=== PATIENT | male | born 1985 | race African-American/Black ===

== ENCOUNTER 2020-05-09 14:02 | Emergency (ER) | payer BC, SELFPAY ==
--- NOTE | 2020-05-09 14:05 | ED.URI ---
HPI - URI/Sore Throat General Chief Complaint: Upper Respiratory Infection Stated Complaint: sore throat/cough Time Seen by Provider: 05/09/20 14:27 Source: patient and RN notes reviewed Mode of arrival: ambulatory Limitations: no limitations History of Present Illness HPI Narrative: 35-year-old male with a history of asthma presents with concern for cough, sore throat, body aches, sinus pressure, postnasal drainage, fatigue. he is concerned about coronavirus. Denies shortness of breath. MD elicited complaint: cough and sore throat Related Data Home Medications Medication Instructions Recorded Confirmed gabapentin 300 mg PO BID 05/09/20 05/09/20 sertraline 50 mg PO BID 05/09/20 05/09/20 trazodone 50 mg PO HS 05/09/20 05/09/20 Allergies Allergy/AdvReac Type Severity Reaction Status Date / Time No Known Allergies Allergy Verified 05/09/20 14:23 Review of Systems Review of Systems: Narrative: CONSTITUTIONAL: Reports malaise, fatigue. Denies chills, sweats, or fever. EYES: Denies visual changes, redness, or discharge. ENT: Reports rhinorrhea, sinus pressure, sore throat. Denies congestion, sinus pain, otalgia. CARDIOVASCULAR: Denies chest pain, palpitations, or edema. RESPIRATORY: Reports cough. Denies dyspnea. GASTROINTESTINAL: Denies abdominal pain, nausea, vomiting, diarrhea SKIN: Denies rash or itching. MUSCULOSKELETAL: Reports myalgia. NEUROLOGIC: Denies headache. All systems reviewed & are unremarkable except as noted in HPI and below PMFSH Comments At time of signature, agree with nursing past medical, surgical, social and family history. There is no relevant family history pertinent to the presenting complaint Exam Narrative: Exam Narrative: GENERAL: Well-appearing, well-nourished, and in no acute distress. HEAD: Normocephalic EYES: PERRLA, conjunctivae clear ENT: Nares clear, turbinates erythematous, clear discharge. Mucous membranes moist. TM pearly baugh with dull light reflex bilaterally; no tragal tenderness. Oropharynx not erythematous without lesions. Tonsils not enlarged and without exudate, no drooling, no hoarseness, no trismus, uvula midline. NECK: Supple. No lymphadenopathy CHEST: Clear to auscultation, breath sounds equal. No wheezing, rhonchi, rales, or stridor. No respiratory distress, speaks in full sentences. HEART: Regular rate and rhythm. No murmur heard. SKIN: Warm, dry, no rash. NEURO: Alert and oriented x3. PSYCH: Normal mood and affect Course Course Emergency Course: Patient is aware of diagnosis, understands and agrees to treatment plan. Anticipatory guidance given. Patient agrees to follow-up as directed and is aware of reasons to seek care at the emergency department. Portions of this record may have been created with voice recognition software Vital Signs Vital signs: Vital Signs Temperature 98.3 F 05/09/20 14:10 Pulse Rate 95 05/09/20 14:10 Respiratory Rate 16 05/09/20 14:10 Blood Pressure 149/67 H 05/09/20 14:10 Pulse Oximetry 99 05/09/20 14:10 Temperature 98.3 F 05/09/20 14:10 Pulse Rate 95 05/09/20 14:10 Respiratory Rate 16 05/09/20 14:10 Blood Pressure 149/67 H 05/09/20 14:10 Pulse Oximetry 99 05/09/20 14:10 Reviewed. MDM - URI/Sore Throat MDM Narrative Medical decision making narrative: Differential diagnosis considered: Coronavirus, strep pharyngitis, allergic rhinitis, upper respiratory tract infection, sinusitis, rhinosinusitis, nasopharyngitis. viral pharyngitis, otitis media, otitis externa, pneumonia, bronchitis, viral cough syndrome, viral syndrome, and influenza. Exam findings show no acute concerns or changes; patient is non-toxic appearing and is in no distress. Patient is appropriate for outpatient treatment and follow-up. Lab Data Attestation: I reviewed the patient's lab results. Labs: Strep Screen Presumptive Negative *(Reference Range: Negative)* Critical Care Time Critical Care Time
[2020-05-09 14:10] VITALS: BP 149/67; PULSE 95; RESP 16; TEMP 36.8; O2SAT 99
== END 2020-05-09 14:42 | disposition home or self-care (01) ==
PROVIDERS: Emergency Provider Nurse Practitioner
DX: J06.9 Acute upper respiratory infection, unspecified (principal); J45.909 Unspecified asthma, uncomplicated; F43.10 Post-traumatic stress disorder, unspecified
CPT/HCPCS: 87081; 87880; 99213; G0463

== ENCOUNTER 2020-08-23 19:47 | Emergency (ER) | payer SELFPAY ==
--- NOTE | ~2020-08-23 | CT_ITS ---
EXAMINATION: CT cervical spine wo con DATE: 08/23/2020 21:22 INDICATION: Neck pain TECHNIQUE: Computed tomography (CT) of the cervical spine was performed without intravenous contrast. Automated exposure control and iterative reconstruction technique were employed. The dose-length pro duct was 514.60 mGy-cm. COMPARISON: None FINDINGS: Mild reversal of the normal cervical lordosis and mild cervical thoracic levocurvature. Vertebral bod y heights are normal. Mild to moderate disc height loss at C6-C7 and mild disc height loss at C2-C3 a nd C5-C6. No fracture. Cervical soft tissues are unremarkable. Visual is fairly and apices of the lisa gs are clear. The following disc levels are specifically discussed: C2-C3: The disc does not extend beyond the endplate margin. There is mild bilateral uncovertebral sonia nt osteoarthritis. There is mild bilateral facet joint osteoarthritis. There is minimal right neural foraminal stenosis. There is no central canal stenosis. C3-C4: The disc does not extend beyond the endplate margin. There is no uncovertebral joint osteoarth ritis. There is mild bilateral facet joint osteoarthritis. There is no neural foraminal stenosis. The re is no central canal stenosis. C4-C5: The disc does not extend beyond the endplate margin. There is mild bilateral uncovertebral sonia nt osteoarthritis. There is mild bilateral facet joint osteoarthritis. There is no neural foraminal s tenosis. There is no central canal stenosis. C5-C6: Disc is mildly bulging. There is minimal bilateral uncovertebral joint osteoarthritis. There i s mild bilateral facet joint osteoarthritis. There is mild left and minimal right neural foraminal st enosis. There is mild central canal stenosis. C6-C7: Disc is bulging. There is moderate left and mild to moderate right uncovertebral joint osteoar thritis. There is mild bilateral facet joint osteoarthritis. There is mild right and mild to moderate left neural foraminal stenosis. There is no central canal stenosis. C7-T1: The disc does not extend beyond the endplate margin. There is no uncovertebral joint osteoarth ritis. There is moderate bilateral facet joint osteoarthritis. There is no neural foraminal stenosis. There is no central canal stenosis. IMPRESSION: 1. Mild cervical spondylosis. Reviewed, dictated and finalized at location H. 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
--- NOTE | ~2020-08-23 | CT_ITS ---
EXAMINATION: CT lumbar spine wo con DATE: 08/23/2020 21:22 INDICATION: Back pain TECHNIQUE: Computed tomography (CT) of the lumbar spine was performed without intravenous contrast. A utomated exposure control and iterative reconstruction technique were employed. The dose-length produ ct was 1004.49 mGy-cm. COMPARISON: Lumbar spine radiographs dated 11/19/[address] dated 03/31/2012 FINDINGS: Mild lumbar levocurvature measured approximately 8 degrees between L3 and S1. 3 mm retrolisthesis L5 on S1. Vertebral body heights are normal. Disc heights are normal. Again seen is a partially exophyti c cyst at the posterior medial upper pole of the left kidney which previously demonstrated simple flu id attenuation and in the current study demonstrates small amount of increased attenuation posteriorl y consistent with a proteinaceous/hemorrhagic cyst. Paravertebral soft tissues are unremarkable. The following disc levels are specifically discussed: T11-T12: The disc does not extend beyond the endplate margin. There is mild bilateral facet joint ost eoarthritis. There is no neural foraminal stenosis. There is no central canal stenosis. T12-L1: The disc does not extend beyond the endplate margin. There is mild bilateral facet joint oste oarthritis. There is no neural foraminal stenosis. There is no central canal stenosis. L1-L2: The disc does not extend beyond the endplate margin. There is mild right and mild to moderate left facet joint osteoarthritis. There is mild left neural foraminal stenosis. There is no central ca nal stenosis. L2-L3: The disc does not extend beyond the endplate margin. There is mild left and mild to moderate r ight facet joint osteoarthritis. There is mild bilateral neural foraminal stenosis. There is no centr al canal stenosis. L3-L4: Disc is mildly bulging. There is mild bilateral facet joint osteoarthritis. There is mild bila teral neural foraminal stenosis. There is mild central canal stenosis. L4-L5: Disc is mildly bulging. There is mild bilateral facet joint osteoarthritis. There is mild bila teral neural foraminal stenosis. There is mild central canal stenosis. L5-S1: Disc is mildly bulging with small left paracentral protrusion. There is mild right and mild to moderate left facet joint osteoarthritis. There is mild bilateral neural foraminal stenosis. There i s minimal central canal stenosis. IMPRESSION: 1. Mild lumbar spondylosis. Reviewed, dictated and finalized at location H. 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 Mild lumbar spondylosis.
[2020-08-23 19:52] VITALS: BP 145/99; PULSE 96; RESP 18; TEMP 35.8; O2SAT 98
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
[2020-08-23] MEDS: KETOROLAC (*BKC) 60 MG/2 ML VIAL IM (20:34)
--- NOTE | 2020-08-23 20:35 | PC.NURSE ---
patient to CT via stretcher.
--- NOTE | 2020-08-23 20:59 | PC.NURSE ---
patient back from radiology. registration stating that patient is does not want to sign consent form or other registration forms until he receives a copy of the record release that we faxed to [facility]. patient given copy. patient stated did you only send this to [facility]? . patient reassured that we only faxed his request to [facility]. patient now agrees to sign other admission forms.
--- NOTE | 2020-08-23 21:55 | PC.NURSE ---
talking on cell phone. CT's resulted. waiting for further orders from provider vs disposition.
--- NOTE | 2020-08-23 22:20 | PC.NURSE ---
report given to Bin GRAY.
[2020-08-23 23:00] VITALS: BP 139/80; PULSE 84; RESP 20; O2SAT 98
== END 2020-08-23 23:09 | disposition home or self-care (01) ==
PROVIDERS: Emergency Provider General Practice
DX: S16.1XXA Strain of muscle, fascia and tendon at neck level, initial encounter (principal); S39.92XA Unspecified injury of lower back, initial encounter; M51.26 Other intervertebral disc displacement, lumbar region; F17.200 Nicotine dependence, unspecified, uncomplicated; M47.812 Spondylosis without myelopathy or radiculopathy, cervical region; M47.816 Spondylosis without myelopathy or radiculopathy, lumbar region; V49.40XA Driver injured in collision with unspecified motor vehicles in traffic accident, initial encounter
CPT/HCPCS: 72125; 72131; 96372; 99284; J1885

== ENCOUNTER 2021-01-03 14:00 | Outpatient (RCR) | payer BC, SELFPAY ==
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
--- NOTE | 2020-12-15 16:07 | PCPTNOTE ---
Patient called & cancelled scheduled appointment this date. No reason given on message.
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
== END 2021-01-04 10:16 | disposition home or self-care (01) ==
LOC: ANHPT 14:00
PROVIDERS: Visit Provider Family Medicine
DX: G54.2 Cervical root disorders, not elsewhere classified (principal); M99.53 Intervertebral disc stenosis of neural canal of lumbar region
CPT/HCPCS: 97012; 97014; 97110; 97140; 97162; G0283

== ENCOUNTER 2021-03-21 08:30 | Outpatient (RCR) | payer BC, SELFPAY ==
--- NOTE | 2021-01-26 16:49 | PTOPEVAL ---
PHYSICAL THERAPY RE-EVALUATION Thank you for referring Tex Alvarado to [facility].? The patient was re-evaluated for the dx of left shoulder and arm pain/tingling. The patient is scheduled to be seen for therapy? 2 x/week for 4 weeks. Please review, sign, date and return this plan of care DOLLY. I agree with and certify that the following plan of care is medically necessary. Referring Physician Date Referring Provider: Dr. Tex Chase *PT Outpatient Evaluation Start: 01/26/21 14:05 Freq: Status: Active Protocol: Document 01/26/21 14:06 MLV (Rec: 01/26/21 14:50 MLV [id number]) Therapy Assessment Status Assessment Status Assessment Status Re-evaluation Evaluation Information Problem Diagnosis neck and shoulder blade pain Additional Evaluation Detail Pt has had an MRI due to continued pain at left shoulder blade and was given gabapentin. The medication is helping some. The patient reports continued pain at medial upper arm to the 4/5th fingers and is at lower trap at trigger point. The patient had follow up with MD and re- ordered more therapy to attempt better relief. Diagnostic Tests MRI For This Problem Yes: no details of results given to patient Previous Treatments Previous Treatments For This Problem recent PT here for this, relief was limited Pain Assessment Timing of Pain Assessment Timing of Pain Assessment Assessment Pain Scale Pain Scale Used Numeric (1 - 10) Self Report Pain Assessment Left Upper Medial Arm(s) Reported Pain Level 5 Pain Description Pulling,Tingling Greatest Pain Intensity 6 Pain Aggravating Factors Walking Pain Behaviors None Left Scapula Reported Pain Level 5 Greatest Pain Intensity 7 Other Pain Aggravating Factors driving, pressure from a chair Pain Behaviors Irritable Pain Score Pain Score 5,5: Self Report Interventions Used Interventions Used By Clinicians Education,Electrical Stimulation,Heat Pain Relief Interventions Used By Inactivity/Rest,Position Patient Change Cervical and Lumbar ROM Cervical ROM Reason Not Measured WNL/Left,WNL/Right Upper Extremity Range of Motion General Upper Extremity Range of Motion Reason Not Measured WNL/Left,WNL/Right Upper Extremity Muscle Strength Testing General Upper Extremity Strength Reason Not
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
--- NOTE | 2021-02-16 15:18 | PCPTNOTE ---
Patient did not show up for scheduled appointment this date. Patient was called and pt reports he was on his way in-believed his appt. was at 2:30pm. Appt was cancelled due to lack of other times available this date.
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
--- NOTE | 2021-03-15 09:44 | PCPTNOTE ---
Patient did not show up for scheduled appointment this date; called patient and left voicemail stating if he had any further questions to call.
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
== END 2021-04-11 10:20 | disposition home or self-care (01) ==
LOC: ANHPT 08:30
PROVIDERS: Referring Provider Orthopaedic Surgery
DX: M54.2 Cervicalgia (principal)
CPT/HCPCS: 97014; 97110; 97140; 97162; G0283

== ENCOUNTER 2021-08-01 10:43 | Outpatient (CLI) | payer OTHER, SELFPAY ==
--- NOTE | ~2021-08-01 | MR_ITS ---
EXAMINATION: MR knee LT wo con DATE: 08/01/2021 12:09 INDICATION: Left knee pain TECHNIQUE: Magnetic resonance imaging (MRI) of the left knee was performed without intravenous contra st. Sequences included coronal PD-weighted FSE, coronal PD-weighted FS FSE, sagittal T2-weighted FSE , sagittal PD-weighted FS FSE and axial PD weighted fat saturated FSE. COMPARISON: Radiographs dated 07/16/2021 FINDINGS: Medial compartment: Longitudinal horizontal tear extending to the inferior articular surface at the body and anterior hor n of the medial meniscus. There is a large parameniscal cyst extending posteriorly from the tear latonya g the periphery of the posterior horn. The cyst extends 4 cm in length extending into the posterior a spect of the intercondylar notch where it measures approximately 8 x 8 mm in maximal orthogonal dimen sions. Additional tiny parameniscal cyst along the anterior horn. Articular cartilage is normal. Lateral compartment: Lateral meniscus is normal. Articular cartilage is normal. Patellofemoral compartment: Articular cartilage is normal. Ligaments and tendons: Anterior and posterior cruciate ligaments are normal. The medial collateral ligament and fibular pranav ateral ligament complex are normal. The extensor mechanism is normal. The visualized medial and later al hamstring tendons as well as the iliotibial band are normal. Fluid: Physiologic amount of fluid in the joint space. No loose osteochondral bodies identified. Osseous/other: Normal marrow signal. No fracture or pathologic marrow replacing process. IMPRESSION: 1. Medial meniscal tear with prominent para meniscal cysts extending along the periphery of the anter ior and posterior horns. Reviewed, dictated and finalized at location A. IMPRESSION: 1. Medial meniscal tear with prominent para meniscal cysts extending along the periphery of the anterior and posterior horns.
== END 2021-08-01 10:44 | disposition home or self-care (01) ==
LOC: ANHIMG 10:44
PROVIDERS: PCP Family Medicine; Visit Provider Orthopaedic Surgery
DX: S83.242A Other tear of medial meniscus, current injury, left knee, initial encounter (principal)
CPT/HCPCS: 73721

== ENCOUNTER → 2021-09-25 02:26 | Outpatient (CLI) | payer OTHER, SELFPAY ==
[2021-09-26 03:58] LABS: SARS-CoV-2 RNA PCR Positive
== END ==
PROVIDERS: PCP Family Medicine; Visit Provider Family Medicine
DX: U07.1 COVID-19 (principal)
CPT/HCPCS: C9803; U0003; U0005

== ENCOUNTER 2021-11-27 09:59 | Outpatient (CLI) | payer OTHER, SELFPAY ==
--- NOTE | ~2021-11-27 | MR_ITS ---
EXAMINATION: MR knee LT wo con DATE: 11/27/2021 10:50 INDICATION: Left knee pain. TECHNIQUE: Magnetic resonance imaging (MRI) of the left knee was performed without intravenous contra st. Sequences included axial PD-weighted FS FSE, coronal PD-weighted FSE and PD-weighted FS FSE, sagi ttal PD-weighted FSE, and sagittal T2-weighted FS FSE. COMPARISON: Left knee MRI 08/01/2021, radiographs 11/12/2021 FINDINGS: Medial compartment: Medial meniscus is normal. Medial compartment cartilage is normal. Lateral compartment: There is an undersurface horizontal tear of anterior horn of lateral meniscus. There are cysts adjace nt to the lateral meniscus anteriorly and posteriorly. The largest cyst is anterior and multiloculate d and measures 2.3 x 1.2 x 1.2 cm. There is cartilage surface irregularity of tibial condyle. There i s shallow partial-thickness cartilage loss of femoral condyle, worst at the central articular surface . Patellofemoral compartment: Patellar cartilage is normal. Trochlear cartilage is normal. Ligaments and tendons: The anterior and posterior cruciate ligaments are normal. There is a partial tear of medial collatera l ligament with surrounding edema. Lateral collateral ligament complex is normal. There is edema-like marrow signal intensity in posterolateral aspect of lateral femoral condyle, consistent with stress reaction. Fluid: There is no knee joint effusion. There is trace fluid in a Hayward's cyst. There is mild prepatellar an d superficial infrapatellar bursitis. IMPRESSION: 1. Grade 2 sprain of medial collateral ligament, new from 08/01/2021. 2. Edema-like marrow signal intensity in posterolateral aspect of lateral femoral condyle, consistent with stress reaction. 3. Mild chondrosis of lateral compartment. 4. Tear of lateral meniscus with parameniscal cysts. Reviewed, dictated and finalized at location A. [employer] IMPRESSION: 1. Grade 2 sprain of medial collateral ligament, new from 08/01/2021. 2. Edema-like marrow signal intensity in posterolateral aspect of lateral femor al condyle, consistent with stress reaction. 3. Mild chondrosis of lateral compartment. 4. Tear of lateral meniscus with parameniscal cysts.
== END 2021-11-27 10:00 | disposition home or self-care (01) ==
LOC: ANHIMG 10:06
PROVIDERS: PCP Family Medicine; Visit Provider Orthopaedic Surgery
DX: S83.282A Other tear of lateral meniscus, current injury, left knee, initial encounter (principal); X58.XXXA Exposure to other specified factors, initial encounter
CPT/HCPCS: 73721

== ENCOUNTER 2021-12-14 00:36 | Day surgery (SDC) | payer OTHER, SELFPAY ==
[2021-12-05 08:17] VITALS: BMI 30.4
--- NOTE | 2021-12-05 08:20 | PC.NURSE ---
Report to the Outpatient Waiting Room, entrance under the green pavilion located off [facility], at time _0600__ on date _[id number]_. OR Time: __729_. - You and your visitor will be asked a series of questions to screen for COVID 19 for your protection. - A mask is required within the hospital. Preoperative COVID Testing Requirements: No COVID Test needed if: (proof is required; if not received patient will have Rapid Test prior to entry) - Patient has received COVID Vaccine at least 14 days prior to procedure date or - Patient has positive COVID test result within last 90 days of surgery date. COVID Test needed if above criteria is not met If not COVID vaccinated a COVID test must be conducted within 72 hours of surgery and patient is asked to isolate self from time of testing until procedure. You will go to the [facility] for your COVID testing. The [employer] [facility] site is located at the corner of [address] from [facility]. You will only be called if COVID results are positive and your surgeon may reschedule your elective surgery date. Patients may have clear liquids (water, carbonated beverages, clear teas, apple juice) until 3 hours prior to surgery with a maximum of 20 ounces. - No food from midnight until time of surgery - Infants may have breast milk until 4 hours before surgery, formula 6 hours prior to surgery. - Children will be allowed to drink immediately following surgery. If applicable, please bring a bottle or sippy cup to assist with drinking. Juice, water, soda, and popsicles are readily available. For infants on formula, please bring formula the day of surgery. Pacifiers are allowed. Take the following medications with a SIP of water the morning of surgery: Medications to discontinue per physician Date to take last dose Please no make-up, nail gabonese, hairspray, perfume, deodorant, or body powder the day of surgery. No jewelry (including any body piercings) or valuables the day of surgery, leave them at home. Please take a shower or bath the night before, or the morning of, surgery with an antibacterial soap. Wear comfortable, loose fitting clothing. Children are encouraged to wear pajamas. - Jewelry must be removed prior to entering the operating room. Rings and piercings that are not removed may be cut off. - The hospital will not accept responsibility for valuables. - Please leave all valuables, including medications, at home the day of surgery. If you are going home after surgery, a licensed motorcycle delivery driver must drive you home. - NO public transportation without another adult. - We recommend that an adult stay with you for 24 hours following discharge. - We also recommend that you do not drive, make important decision, drink alcoholic beverages, or take any drugs that were not prescribed by your health care provider for at least 24 hours after your discharge time. For Pediatric surgeries, we recommend two adults accompany the child home (only one inside the building at this time). One visitor will be allowed to accompany the patient into the hospital. Patients visitor will be instructed to remain with patient at all times or leave the building. We will allow the visitor to come back to the postoperative area when patient is ready. Follow any additional instructions given to you from your surgeon. Telephone instructions given to ___Patient and asked if any additional questions and then verbalized understanding. Patient advised to call surgeon office or pre surgery nurse liaison [phone] if any additional questions.
--- NOTE | 2021-12-13 13:39 | P.PNAN_ITS ---
Anes - Initial Pre Proc Eval Procedure: Operation Date: 12/14/21 11:00 Proposed Procedures p Left Knee Arthroscopy with Meniscectomy, Excision Parameniscal Cyst - Archie Ruth MD Date/Time: 12/13/21 13:39 Surgeon: Archie Ruth MD Pre Op Diagnosis: Lt Knee Medial Meniscus Tear Patient Data Age: 36 Gender: M Height: 1.85 m Weight: 104.5 kg Allergies Allergy/AdvReac Type Severity Reaction Status Date / Time No Known Allergies Allergy Verified 12/14/21 09:25 Home Medications Medication Instructions Recorded Confirmed Type chlorhexidine gluconate 4 % 1 applic TOPICAL ONCE #237 ml 12/07/21 Rx topical liquid Patient hx anesthesia problems: none Family hx anesthesia problems: none Results Review: All pre-operative results and documents have been reviewed as part of the pre-operative evaluation. [facility] Past Medical History Medical History (Updated 12/07/21 @ 12:16 by MARTIN Fajardo) Anxiety Arthritis Asthma Depression with anxiety Environmental allergies Insomnia Lateral meniscus tear PTSD (post-traumatic stress disorder) Surgical History Surgical History No pertinent past surgical history Social History Social History Tobacco type: cigars Alcohol intake: unknown Substance use: never Substance use type: does not use Living arrangements: with family Gender identity (if verbalized by the patient): Male Spiritual care concerns: No Anes - Eval Final PreProcedure Day of Procedure 12/13/21 13:39 Patient weight: obese Heart: regular rate and rhythm Lungs: clear to auscultation Airway: Mallampati scale class II Neurological: alert and oriented Last oral intake: >/= 8 hours ASA classification: II Emergent: no Anesthetic plan: proceed Anesthesia type and monitoring: general LMA and standard monitoring Results Review: All pre-operative results and documents have been reviewed as part of the pre-operative evaluation. Informed Consent: The patient's anesthetic plan and its attendant risks and benefits were discussed with the patient/family/POA. Questions were solicited and answers provided to the satisfaction of the patient/family/POA.
[2021-12-14] VITALS (9 sets, daily range): BP systolic 123–134; BP diastolic 76–95; PULSE 70–82; RESP 12–16; TEMP 36.6–37.1; O2SAT 96–98
--- NOTE | 2021-12-14 07:27 | WPDHPUPDATE1 ---
History and Physical Update Update Date/Time: 12/14/21 07:27 History and Physical has been reviewed, including an updated exam of the patient. There are NO changes in the patient's condition. Risks, benefits, and alternatives have been discussed and questions answered. Patient agrees to proceed with procedure.
[2021-12-14] MEDS: CELECOXIB 200 MG CAPSULE PO (09:35)
[2021-12-14] MEDS: ACETAMINOPHEN 500 MG TABLET 1000 MG PO (09:35)
[2021-12-14] MEDS: LACTATED RINGERS 1,000 ML 30 ML IV CONT ×2 (10:20→12:34)
[2021-12-14] MEDS: ceFAZolin 2 GM/D5W 50 ML 2 GM/50 ML BAG IVPB (10:43)
[2021-12-14] MEDS: BUPIVACAINE HCL 0.5% PF 30 ML VIAL INFILTRATE (11:08)
--- NOTE | 2021-12-14 12:48 | W.PM.PROC2 ---
Procedure Note - Detailed Date of Procedure 12/14/21 Pre-op Diagnosis Lt Knee Medial Meniscus Tear Post-op Diagnosis Same Procedure Performed LEFT KNEE SCOPE Surgeon Archie Ruth MD Anesthesia General Description of Procedure PATIENT WAS TAKEN TO THE OR. LEFT LEG WAS PREPPED AND DRAPED STERILE. TROCARS WERE PLACED IN THE USUAL FASHION. CAMERA WAS INTRODUCED. THERE WAS no CHONDROMALACIA TO THE PATELLA OR PATELLO FEMORAL JOINT. THERE WAS A LOT OF SYNOVITIS IN ALL COMPARTMENTS. THE MEDIAL COMPARTMENT SHOWED NO CHONDROMALACIA TO THE MEDIAL FEMORAL CONDYLE OR PLATEAU. THERE WAS NO MEDIAL MENISCUS TEAR. THE ACL WAS INTACT. THE LATERAL MENISCUS WAS TORN AT THE MID SUBSTANCE AND THE ANTERIOR HORN. THERE WAS A FLAP WITHIN THE INTERCONDYLAR NOTCH. THE TEARS WERE RESECTED. THE LATERAL COMPARTMENT HAD GRADE 2 CHONDROMALACIA AT THE LATERAL FEMORAL CONDYLE ON THE MAIN WEIGHT BEARING SURFACE. CHONDROPLASTY WAS PREFORMED. A SYNOVECTOMY WAS PREFORMED WELL. CYSTIC MATERIAL APPEARED TO BE AT THE ANTERIOR SYNOVIUM REGION AND WAS RESECTED WITH A SYNOVECTOMY. SYNOVECTOMY WAS PREFORMED IN THE SUPERIOR MEDIAL COMPARTMENT. THE WOUNDS WERE APPROXIMATED WITH 4.0 NYLON. STERILE DRESSING WAS APPLIED. PATIENT WAS EXTUBATED. Estimated Blood Loss 5 Complications No immediate complications Condition Stable Disposition PACU
[2021-12-14] MEDS: fentaNYL CITRATE INJ (*CRX) 100 MCG/2 ML VIAL 25 MCG IV PUSH ×2 (13:03→13:13)
[2021-12-14] MEDS: oxyCODONE HCL (*CRX) 5 MG TAB IR PO (14:10)
== END 2021-12-14 15:00 | disposition home or self-care (01) ==
PROVIDERS: PCP Family Medicine; Visit Provider Orthopaedic Surgery
PROC: (CPT 29870; principal; 2021-12-14 11:00)
DX: S83.272A Complex tear of lateral meniscus, current injury, left knee, initial encounter (principal); S83.412A Sprain of medial collateral ligament of left knee, initial encounter; X50.0XXA Overexertion from strenuous movement or load, initial encounter; E66.9 Obesity, unspecified; Z68.30 Body mass index [BMI] 30.0-30.9, adult
CPT/HCPCS: 29881; A9270; J0690; J1100; J2250; J2405; J2704; J3010; J7120

== ENCOUNTER 2022-01-17 08:15 | Outpatient (RCR) | payer OTHER, SELFPAY ==
--- NOTE | 2021-11-28 12:27 | PTOPEVAL ---
PHYSICAL THERAPY EVALUATION AND PLAN OF CARE Thank you for referring Tex Alvarado to [facility].? The patient is scheduled to be seen for therapy? 2x/week for 2-4 weeks. There may be a pause is care as he has knee surgery scheduled for 12/14/21. Will communicate any changes in plan of care. Please review, sign, date and return this plan of care DOLLY. I agree with and certify that the following plan of care is medically necessary. Referring Physician Date Attending Provider: Pradip Tillman MD Evaluation Outpatient Past Medical History Neurological History Hx Neurological Disorders No Significant History Cardiovascular History Hx Cardiac Disorders No Significant History Respiratory History Hx Asthma Yes Gastrointestinal History Hx Gastrointestinal Disorders No Significant History Genitourinary History Hx Genitourinary Disorders No Significant History Musculoskeletal History Hx Arthritis Yes: NECK Hematological History Hx Hematological Disorders No Significant History Endocrine History Hx Endocrine Disorders No Significant History HEENT History Hx Other HEENT Disorders Yes: EYE INJURY WITH PAIN Integumentary History Hx Skin Disorders No Significant History Reproductive History Hx Reproductive Disorders No Significant History Psychosocial History Hx Post Traumatic Stress Disorder Yes Pain History History of Any Previous or Ongoing No Significant History Instance of Pain Anesthesia History Hx Anesthesia Reactions No Significant History Diagnosis neck pain, back pain Onset 11/09/21 Subjective Information patient was on the phone when Query Text:As Reported By Patient/ we came to the treatment room. Family I told him that we could start when he was done with his phone call and he said that I could go ahead and I replied that no we would start the evaluation when he was done with his phone call and I could step out of the room if he needed. He immediately stood up and walked to go talk with the manager ethics (Alexus Bower). He retuned and sat in the chair. I confirmed with him that we would be working with his neck and his back (the order has referral for knee pain, but he stated that he is having surgery on to his knee and we would not be worki
--- NOTE | 2021-12-10 09:43 | PCPTNOTE ---
Addendum entered by Avril Irwin, PT, DPT 12/10/21 10:55: called patient and he stated that he ended up having a double appointment and asked to reschedule today's appointment. We rescheduled for a 30minute for 12/11 at 8:30AM. Original Note: Patient did not show up for scheduled appointment this date.
--- NOTE | 2021-12-26 09:57 | PCPTNOTE ---
Patient called & cancelled scheduled appointment this date due to not feeling well and knee is hurting more.
--- NOTE | 2022-01-01 11:52 | PTOPEVAL ---
PHYSICAL THERAPY PROGRESS REPORT and PLAN OF CARE UPDATE Thank you for referring Tex Alvarado to [facility].? The patient is scheduled to be seen for therapy? 2x/week for 4 weeks. Please review, sign, date and return this plan of care DOLLY. I agree with and certify that the following plan of care is medically necessary. Referring Physician Date Attending Provider: Pradip Tillman MD Progress Diagnosis neck pain, back pain Onset 11/09/21 Subjective Information is here today for evaluation Query Text:As Reported By Patient/ of the left knee following Family menisectomy arthroscopy and for re-assessmnet of neck and back pain. States that his neck and back are making good progress with some tightness in the neck and pain in the right middle back region. left knee: states that he feels like he strained the back of the knee and the muscles in the back and states there is a lot of tightness in the knee. He speaks frequently about the swelling and fluid in the knee and seems to be quite concerned that there continues to be swelling. He is no longer using crutches. Wants to be able to be active by February. Self Report Pain Assessment Left Knee(s) Reported Pain Level 8 Pain Description Tightness Pain Frequency Acute,Continuous Neck Reported Pain Level 2 Pain Description Aching,Tightness Bilateral Back Reported Pain Level 2 Pain Description Sharp Radicular Pain Location stiffness Pain Frequency Chronic,Continuous Pain Score Pain Score 2,2,8: Self Report Interventions Used Interventions Used By Clinicians Education,Exercise Cervical and Lumbar ROM Cervical ROM Cervical Flexion (0-60) 50 Query Text:Active in Degrees Cervical Extension (0-70) 50 Query Text:Active in Degrees Cervical Rotation Right (0-90) 70 Query Text:Active in Degrees Cervical Rotation Left (0-90) 80 Query Text:Active in Degrees Cervical ROM Comments . Lumbar ROM Lumbar Flexion Active Mid [place] Query Text:Hands to: Lumbar Extension (0-40) 10 Query Text:Active in Degrees
--- NOTE | 2022-01-03 08:57 | PCPTNOTE ---
Patient called & cancelled scheduled appointment this date due to work.
--- NOTE | 2022-01-14 09:08 | PCPTNOTE ---
Patient did not show up for scheduled appointment this date; called patient for reminder of appointment on @ 8:15. Patient stated he wanted to reschedule this missed appointment transferred called to brakes inspector to schedule.
--- NOTE | 2022-01-22 08:45 | PCPTNOTE ---
Patient called & cancelled scheduled appointment this date due work conflict.
--- NOTE | 2022-02-06 08:48 | PCPTNOTE ---
Patient did not show up for scheduled appointment this date.
--- NOTE | 2022-02-27 07:48 | PCPTNOTE ---
Patient called & cancelled scheduled appointment this date due to his knee swelling.
--- NOTE | 2022-02-27 12:17 | PCPTNOTE ---
Called and spoke with patient regarding his cancelled visit. He states that at his last MD appt, 02/22/22, he was told to decreased activity. He has been trying to decrease activity over the weekend. He called to cancel his appointment this morning secondary to his knee swelling and did not want to come to therapy in case is aggravated the knee. He was seeking advice as to what could be causing the swelling. Without seeing him I am not able to provide this type of advice; however, this is the third appointment he has cancelled due to his concern; therefore, I advised him to speak with the physician again. We plan to discharge from PT until the swelling in the knee can be better controlled.
--- NOTE | 2022-02-27 12:20 | PCPTNOTE ---
PHYSICAL THERAPY DISCHARGE NOTE Patient:Tex Alvarado Date of :1985 Tex was participating in physical therapy initially for neck and thoracic spine pain and then in December he had menisectomy performed on left knee. Since that time we were addressing rehab from surgery. He continues to have persistent pain and swelling in the left knee. Stairs and squats increase pain. Rest and ice alleviate pain. Patient has not returned for any further treatments since 01/17/2022 and has cancelled several due to swelling in the knee. He will be discharged at this time until swelling in knee can be better controlled. Thank you for referring this patient to [facility]. Please review, sign, date and return this discharge summary DOLLY. I have been updated about the patient's current status and I agree with discharge from the above service at this time. Referring Physician Date
== END 2022-02-26 23:59 | disposition home or self-care (01) ==
LOC: ANHPT 08:15
PROVIDERS: PCP Family Medicine; Referring Provider Family Medicine; Visit Provider Family Medicine
DX: M25.562 Pain in left knee (principal); M54.2 Cervicalgia; M54.9 Dorsalgia, unspecified; G89.29 Other chronic pain
CPT/HCPCS: 97014; 97110; 97112; 97116; 97140; 97162; G0283

== ENCOUNTER 2022-05-21 07:27 | Outpatient (CLI) | payer OTHER, SELFPAY ==
--- NOTE | ~2022-05-21 | MR_ITS ---
EXAMINATION: MR knee LT wo con DATE: 05/21/2022 08:59 INDICATION: Pelvic recurrent left knee pain post arthroscopy. TECHNIQUE: Magnetic resonance imaging (MRI) of the left knee was performed without intravenous contra st. Sequences included coronal PD-weighted FSE, coronal PD-weighted FS FSE, sagittal T2-weighted FSE , sagittal PD-weighted FS FSE and axial PD weighted fat saturated FSE. COMPARISON: 11/27/2021 FINDINGS: Medial compartment: There is a new small longitudinal vertical tear extending to the inferior articular surface and the p eripheral third of the posterior horn of the medial meniscus. Articular cartilage is normal. Lateral compartment: Decrease in size of the anterior horn of the lateral meniscus consistent with interval partial menisc ectomy. There is a ragged margin along a radial tear plane at the posterior horn of the lateral menis cus which previously appeared normal, likely beyond the anticipated posterior margin of the prior par tial meniscectomy and which along with the irregular margins and would favor a recurrent meniscal tea r. The prior prior meniscal cysts are no longer visualized and have likely also been debrided. Parti al-thickness cartilage loss with new deep fissuring along the anterior weightbearing lateral femoral condyle. Shallow chondral surface regularity along the lateral tibial plateau. Patellofemoral compartment: Articular cartilage is normal. Ligaments and tendons: Anterior and posterior cruciate ligaments are normal. Again noted is a partial tear involving the ant erior portion of the proximal medial collateral ligament with resolution of the prior surrounding nora ctive edema. No evident progression of extent or severity of the tear. The fibular collateral ligamen t complex is normal. Tiny enthesophyte at the patellar insertion of the distal patellar tendon. The e xtensor mechanism is otherwise normal. The visualized medial and lateral hamstring tendons as well as the iliotibial band are normal. Fluid: Small left knee joint effusion with mild synovitis at the suprapatellar pouch. No loose osteochondral bodies identified. Small Hayward's cyst. Osseous/other: Prior marrow edema likely related to bone contusion at the posterolateral aspect of the weightbearing lateral femoral condyle has resolved. Marrow signal is now normal with no fracture or pathologic mar row replacing process. IMPRESSION: 1. Postoperative change of prior partial meniscectomy involving the anterior horn and likely body of the lateral meniscus. There is a new radial oriented defect with irregular margins at the previously normal-appearing posterior horn likely beyond the expected margins of the prior meniscectomy and woul d favor a recurrent meniscal tear. 2. New very small vertically oriented tear at the posterior horn of the medial meniscus. 3. No evident progression of a chronic partial tear along the anterior aspect of the proximal medial collateral ligament. 4. 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 Reviewed, dictated and finalized at location A. IMPRESSION: 1. Postoperative change of prior partial meniscectomy involving the anterior ho rn and likely body of the lateral meniscus. There is a new radial oriented defe ct with irregular margins at the previously normal-appearing posterior horn lik sofia beyond the expected margins of the prior meniscectomy and would favor a rec urrent meniscal tear. 2. New very small vertically oriented tear at the posterior horn of the medial meniscus. 3. No evident progression of a chronic partial tear along the anterior aspect o f the proximal medial collateral ligament. 4. Interval progression of moderate grade chondromalacia in the lateral compart me
== END 2022-05-21 07:28 | disposition home or self-care (01) ==
LOC: ANHIMG 07:32
PROVIDERS: PCP Family Medicine; Visit Provider Orthopaedic Surgery
DX: M25.562 Pain in left knee (principal); Z98.890 Other specified postprocedural states
CPT/HCPCS: 73721

== ENCOUNTER 2022-07-15 14:55 | Outpatient (RCR) | payer OTHER, SELFPAY ==
[2022-07-15 15:30] VITALS: BP_SYST 84
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
--- NOTE | 2022-07-19 11:37 | PCPTNOTE ---
Patient did not show up for scheduled appointment this date. Physical therapist called patient at 1130. Patient reports he forgot as he has been having memory issues and asked to be connected to the front counter clerk to reschedule. Transferred to the front counter clerk to talk to Alexus.
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
== END 2022-10-03 13:24 | disposition home or self-care (01) ==
LOC: ANHPT 14:55
PROVIDERS: PCP Family Medicine; Visit Provider Nurse Practitioner Family
DX: M25.512 Pain in left shoulder (principal); M54.50 Low back pain, unspecified; M54.6 Pain in thoracic spine
CPT/HCPCS: 97161; 99199

== ENCOUNTER 2023-02-16 13:49 | Emergency (ER) | payer OTHER, SELFPAY ==
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
[2023-02-16 14:00] VITALS: BP 148/93; PULSE 109; RESP 20; TEMP 36.7; O2SAT 98
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
[2023-02-16] MEDS: SODIUM CHLORIDE 0.9% IV 1,000 ML 999 ML IV CONT (14:59)
[2023-02-16] MEDS: TETANUS,DIPHTHERIA,AC PERTUSSIS ADULT (0.5 ML) BOOSTRIX IM (15:01)
[2023-02-16] MEDS: KETOROLAC 15 MG/ML VIAL (*BKC) IV PUSH (15:02)
[2023-02-16 15:11] LABS: Basophils Percent Auto 0.4 % (0.2-1.2); Eosinophils Absolute Auto 0.2 K/mm3 (0-0.3); Eosinophils Percent Auto 3.5 % (0-4.4); Hematocrit 44.8 % (42.0-52.0); Hemoglobin 15.3 g/dL (14.0-18.0); Immature Granulocyte Absolute 0.04 K/mm3 (0.00-0.031); Immature Granulocyte Percent A 0.8 % (0-0.5); Lymphocytes Percent Auto 21.2 % (18.3-44.2); Mean Corpuscular HGB Conc 34.2 g/dl (32-36); Mean Corpuscular Volume 90.7 fl (80-100); Mean Platelet Volume 9.3 fl (7.4-10.4); Monocytes Absolute Auto 0.5 K/mm3 (0.1-0.6); Neutrophils Absolute Auto 3.3 K/mm3 (1.3-6.7); Neutrophils Percent Auto 64.1 % (45.5-73.1); Platelet Count Result 243 k/mm3 (150-375); Red Blood Count 4.94 M/mm3 (4.6-6.20); Red Cell Distribution Width 12.1 % (11.5-14.5); White Blood Count 5.2 K/mm3 (4.5-10.0)
[2023-02-16 15:21] LABS: Alanine Aminotransferase 39 U/L (6-50); Albumin Level 4.5 g/dL (3.5-5.1); Alkaline Phosphatase 45 U/L (38-126); Anion Gap 7 mmol/L (8-16); Aspartate Amino Transferase 57 U/L (17-59); Bilirubin,Total 0.8 mg/dL (0.2-1.3); Blood Urea Nitrogen 15 mg/dL (9-20); Calcium 8.9 mg/dL (8.4-10.2); Carbon Dioxide 27 mmol/L (22-30); Chloride 106 mmol/L (98-107); Estimated CRCL calculation 123 ml/min; Estimated Glomerular Filt Rate > 60; Glucose 95 mg/dL (65-110); Lipase 121 U/L (23-300); Potassium 3.8 mmol/L (3.4-5.0); Sodium 140 mmol/L (137-145)
--- NOTE | 2023-02-16 16:14 | PC.NURSE ---
Patient declined to give Urine Sample at this time. patient reports that he does not need any urine testing.
[2023-02-16 17:15] VITALS: BP 143/84; PULSE 70; RESP 18; O2SAT 100
== END 2023-02-16 18:47 | disposition short-term general hospital (02) ==
PROVIDERS: Emergency Provider General Practice
DX: S09.90XA Unspecified injury of head, initial encounter (principal); S36.892A Contusion of other intra-abdominal organs, initial encounter; T22.211A Burn of second degree of right forearm, initial encounter; T31.0 Burns involving less than 10% of body surface; S89.92XA Unspecified injury of left lower leg, initial encounter; S89.91XA Unspecified injury of right lower leg, initial encounter; S19.9XXA Unspecified injury of neck, initial encounter; S69.92XA Unspecified injury of left wrist, hand and finger(s), initial encounter; Z23 Encounter for immunization; M19.90 Unspecified osteoarthritis, unspecified site; J45.909 Unspecified asthma, uncomplicated; Z86.73 Personal history of transient ischemic attack (TIA), and cerebral infarction without residual deficits; W52.XXXA Crushed, pushed or stepped on by crowd or human stampede, initial encounter
CPT/HCPCS: 36415; 70450; 71260; 72125; 73130; 73564; 74177; 80053; 83690; 85025; 90471; 90715; 96361; 96374; 99284; 99285; J1885; J7030; Q9967

== ENCOUNTER 2023-06-23 17:20 | Emergency (ER) | payer OTHER, SELFPAY ==
--- NOTE | ~2023-06-23 | XR_ITS ---
EXAMINATION: XR chest 2V Exam Date/Time: 06/23/2023 17:51 CDT HISTORY: right upper back pain, pain w/ inspiration Comparison: 11/10/2018. RESULT: Lines, tubes, and devices: None. Lungs and pleura: Clear. Cardiomediastinal silhouette: Stable. Other: No acute osseous or upper abdominal finding. IMPRESSION: No acute cardiopulmonary process. Reviewed, dictated and finalized at location K.
[2023-06-23 17:43] VITALS: BP 135/83; PULSE 96; RESP 18; TEMP 36.6; O2SAT 99
--- NOTE | 2023-06-23 20:10 | ED.BACK ---
HPI - Back Pain/Injury General Chief Complaint: Back Pain/Injury Stated Complaint: right back pain x 4 weeks, concerned about lung Time Seen by Provider: 06/23/23 19:39 Source: patient, RN notes reviewed and old records reviewed Mode of arrival: ambulatory Limitations: no limitations History of Present Illness HPI Narrative: This is a 38 year old male who presents for evaluation of left mid back pain. He states he has had pain for 3-4 weeks. He states this pain occurs daily and it seems worse with breathing. He is concerned about his lungs. He reports pain is 10/10. HE denies any trauma. HE denies chest pain, nausea, vomiting hematuria or abdominal pain. He also reports developing a cold with cough this past weekend. He is requesting to have CT scan ordered of his lungs. Related Data Allergies Allergy/AdvReac Type Severity Reaction Status Date / Time No Known Allergies Allergy Verified 06/23/23 18:46 Review of Systems Constitutional: Constitutional: Denies weakness Cardiovascular: Cardiovascular: Denies syncope, Denies rapid heart rate, Denies irregular heart rhythm, Denies leg edema and Denies dyspnea Respiratory: Respiratory: Reports chest congestion, Reports cough, Denies hemoptysis, Denies excessive phlegm production and Denies dyspnea Gastrointestinal: Gastrointestinal: Denies abdominal pain, Denies hematochezia, Denies diarrhea and Denies vomiting Genitourinary: Genitourinary: Denies hematuria, Denies dysuria, Denies penile discharge and Denies testicular pain Musculoskeletal: Musculoskeletal: Reports back pain, Denies joint swelling, Denies loss of height and Denies muscle weakness Neurologic: Denies syncope, Denies focal weakness and Denies weakness PMFSH Past Medical History Medical History Anxiety Arthritis Asthma Depression with anxiety Environmental allergies Insomnia Lateral meniscus tear Left knee pain PTSD (post-traumatic stress disorder) TIA (transient ischemic attack) Surgical History Surgical History No pertinent past surgical history S/P left knee arthroscopy Social History Social History Smoking status: Never smoker Tobacco type: cigars Alcohol intake: unknown Substance use: never Substance use type: does not use Living arrangements: with family Gender identity (if verbalized by the patient): Male Spiritual care concerns: No Exam Const: General: no acute distress and alert Nutritional Appearance: well nourished Orientation/consciousness: patient oriented x3 Limitations: no limitations HENMT: Head: normal to inspection Mouth: Yes Normal oral and palatal mucosa present, Yes lip normal and Yes moist mucous membranes Eyes: EOM: EOMs intact bilaterally Chest: Chest palpation & inspection: normal inspection of the chest Resp: Effort & Inspection: normal respiratory effort Auscultation: clear to auscultation bilaterally Cardio: Rate: regular rate Rhythm: regular rhythm Heart sounds: no murmurs GI: GI Palp: Yes Soft to palpation, No Tenderness to palpation present (GI), No Guarding due to palpation present (GI) and No Rigid due to palpation : General: Yes CVA tenderness on the left Skin: General skin exam: normal color Rashes: no rashes Wounds: no wounds Neuro: General: patient oriented x3, moves all extremities and CN's II-XI intact bilaterally Extrem: General: normal to inspection Psych: Mental Status: mental status grossly normal Affect: normal affect Attitude: cooperative Course Reevaluation(s) Reevaluation #1: I Discussed with patient that in order to fully evaluated his pain and since he asked for CT scan he will need to have labs drawn to assess kidney function and ordered d dimer to see if he needs CT lung with contrast. After this discussion, nurse reports patient asking to
--- NOTE | 2023-06-23 20:25 | PC.NURSE ---
Pt asking to be referred to a PCP instead of getting labs and meds here as here is agitated and ready to go. Dr. Holliday aware.
== END 2023-06-23 20:15 | disposition left against medical advice (07) ==
PROVIDERS: Emergency Provider General Practice
DX: M54.9 Dorsalgia, unspecified (principal); F41.9 Anxiety disorder, unspecified; M19.90 Unspecified osteoarthritis, unspecified site; J45.909 Unspecified asthma, uncomplicated; F32.A Depression, unspecified
CPT/HCPCS: 71046; 99283

== ENCOUNTER 2023-09-04 19:18 | Emergency (ER) | payer OTHER, SELFPAY ==
[2023-09-04 19:35] VITALS: BP 128/76; PULSE 105; RESP 16; TEMP 36.6; O2SAT 99
== END 2023-09-04 19:40 | disposition left against medical advice (07) ==
DX: R09.89 Other specified symptoms and signs involving the circulatory and respiratory systems (principal)
CPT/HCPCS: 99199

== ENCOUNTER 2024-01-19 13:15 | Emergency (ER) | payer OTHER, SELFPAY ==
[2024-01-19 13:32] VITALS: BP 143/87; PULSE 110; RESP 16; TEMP 36.4; O2SAT 99
--- NOTE | 2024-01-19 14:14 | ED.GENADULT ---
HPI - General Adult General Chief complaint: Unspecified Stated complaint: ST Time Seen by Provider: 01/19/24 13:46 History of Present Illness HPI narrative: Patient is a 38-year-old male who presents ER with 2 concerns. First concern is sore throat. Last all day yesterday. Unsure if it is related to some nasal congestion. No cough. No fevers or chills or sweats. Symptoms have resolved. He also knows he has been having dysuria for several days. Reports had unprotected sex 2 weeks ago with another female. He has had no urethral discharge. No testicular pain. Feels similar to chlamydia which he has had in past. Related Data Allergies Allergy/AdvReac Type Severity Reaction Status Date / Time No Known Allergies Allergy Verified 09/04/23 19:19 Review of Systems Constitutional: Constitutional: Reports no additional constitutional complaints ENT: Reports nasal congestion and Reports sore throat Genitourinary: Genitourinary: Denies genital lesions, Reports dysuria, Denies penile discharge, Denies testicular pain and Denies urinary frequency PMFSH Past Medical History Medical History Anxiety Arthritis Asthma Depression with anxiety Environmental allergies Insomnia Lateral meniscus tear Left knee pain PTSD (post-traumatic stress disorder) TIA (transient ischemic attack) Surgical History Surgical History No pertinent past surgical history S/P left knee arthroscopy Social History Social History Smoking status: Never smoker Tobacco type: cigars Alcohol intake: unknown Substance use: never Substance use type: does not use Living arrangements: with family Gender identity (if verbalized by the patient): Male Spiritual care concerns: No Exam Narrative: GENERAL: Well-appearing, well-nourished, and in no acute distress. HEAD: Normocephalic, atraumatic. ENT: Mucous membranes moist. Normal appearing posterior oropharynx. : Normal appearing penile shaft and scrotum home. No urethral discharge. No lesions. EXTREMITIES: Normal range of motion. No edema. SKIN: Warm, dry, no rash. NEURO: Alert and oriented x3. PSYCH: Normal mood and affect. Course Course Emergency Course: Urine negative for GC/chlamydia. Discharge home. Reassurance given. Vital Signs Vital signs: Vital Signs Temperature 97.5 F L 01/19/24 13:32 Pulse Rate 110 H 01/19/24 13:32 Respiratory Rate 16 01/19/24 13:32 Blood Pressure 143/87 H 01/19/24 13:32 Pulse Oximetry 99 01/19/24 13:32 Oxygen Delivery Room Air 01/19/24 13:32 Temperature 97.5 F L 01/19/24 13:32 Pulse Rate 110 H 01/19/24 13:32 Respiratory Rate 20 01/19/24 15:15 Blood Pressure 143/87 H 01/19/24 13:32 Pulse Oximetry 98 01/19/24 15:15 Oxygen Delivery Room Air 01/19/24 13:32 Medical Decision Making Vital Signs Vital Signs: Vital Signs Temperature 97.5 F L 01/19/24 13:32 Pulse Rate 110 H 01/19/24 13:32 Respiratory Rate 16 01/19/24 13:32 Blood Pressure 143/87 H 01/19/24 13:32 Pulse Oximetry 99 01/19/24 13:32 Oxygen Delivery Room Air 01/19/24 13:32 Temperature 97.5 F L 01/19/24 13:32 Pulse Rate 110 H 01/19/24 13:32 Respiratory Rate 20 01/19/24 15:15 Blood Pressure 143/87 H 01/19/24 13:32 Pulse Oximetry 98 01/19/24 15:15 Oxygen Delivery Room Air 01/19/24 13:32 Lab Data Labs: Lab Results 01/19/24 Range/Units 15:13 C. trachomatis (PCR) Not detected (NOT DETECTE) N. gonorrhoeae (PCR) Not detected (NOT DETECTE) Discharge Plan Discharge Clinical Impression: Dysuria, Sore throat Patient Disposition: Home, Self-Care Condition: Stable Instructions: Antibiotic Form, General Patient Instructions Additional Instructions: Return ER if you have additional concerns, you have dis
[2024-01-19 15:15] VITALS: RESP 20; O2SAT 98
[2024-01-19 16:57] LABS: Chlamydia trachomatis NOT DETECTED (NOT DETECTE); Neisseria gonorrhoeae PCR NOT DETECTED (NOT DETECTE)
== END 2024-01-19 17:21 | disposition home or self-care (01) ==
PROVIDERS: Emergency Provider Emergency Medicine
DX: R30.0 Dysuria (principal); J02.9 Acute pharyngitis, unspecified; M19.90 Unspecified osteoarthritis, unspecified site; J45.909 Unspecified asthma, uncomplicated; F32.A Depression, unspecified; F41.9 Anxiety disorder, unspecified
CPT/HCPCS: 87491; 87591; 99283

== ENCOUNTER 2024-04-06 08:35 | Emergency (ER) | payer OTHER, SELFPAY ==
--- NOTE | ~2024-04-06 | XR_ITS ---
XR knee LT min 4V Ordering provider: Mckay Lilly MD History: . fall this AM, PAIN LATERAL LT KNEE . Comparison: February 16, 2023 FINDINGS: BONES: No acute fracture or dislocation. JOINT SPACES: Slight narrowing of the lateral compartment. Ossification of the medial collateral ligament in the femoral area. SOFT TISSUES: Normal. IMPRESSION: No acute osseous abnormality left knee. Mild osteoarthritic changes. Reviewed, dictated and finalized at location A.
[2024-04-06 08:45] VITALS: BP 115/60; PULSE 73; RESP 16; TEMP 36.4; O2SAT 99
--- NOTE | 2024-04-06 09:17 | ED.LOWEXIN ---
HPI - Extremity Injury (Lower) General Chief Complaint: Extremity Injury, Lower Stated Complaint: Fall, knee pain Time Seen by Provider: 04/06/24 08:52 History of Present Illness HPI Narrative: 39-year-old male presents emergency room for evaluation of left knee pain. Patient states he has a history of a left medial collateral ligament sprain and is on a separate occasion the left meniscal tear that was repaired by Dr. Hudson. States he was waiting for the [employer] train at this station, when he slipped on a piece of plywood. The fall caused his left leg to bend and word. Patient states he has been experiencing pain on the lateral side of his left knee. Patient was unable to bear weight or ambulate following the injury. Patient and presented to the ER via EMS. Denies any other injuries or trauma Related Data Allergies Allergy/AdvReac Type Severity Reaction Status Date / Time No Known Allergies Allergy Verified 09/04/23 19:19 Review of Systems Review of Systems: ROS unremarkable except for noted in HPI PMFSH Past Medical History Medical History Anxiety Arthritis Asthma Depression with anxiety Environmental allergies Insomnia Lateral meniscus tear Left knee pain PTSD (post-traumatic stress disorder) TIA (transient ischemic attack) Surgical History Surgical History No pertinent past surgical history S/P left knee arthroscopy Social History Social History Smoking status: Never smoker Tobacco type: cigars Alcohol intake: unknown Substance use: never Substance use type: does not use Living arrangements: with family Gender identity (if verbalized by the patient): Male Spiritual care concerns: No Exam Narrative: GENERAL: Well-appearing, well-nourished, no physical limitations, and in no acute distress. HEAD: Normocephalic, atraumatic. EYES: Conjunctivae normal, PERRLA and EOMI. CHEST: Clear to auscultation. No respiratory distress. No wheezes rales or rhonchi. HEART: Regular rate and rhythm. No murmur heard. Normal peripheral pulses. EXTREMITIES: left knee: +TTP lateral to patella. No STS, ecchymosis, or obvious bony abnormality. passive Full range of motion. no joint laxity. Negative anterior-posterior drawer tests, pain with Jessica's test SKIN: Warm, dry, no rash. No noted wounds NEURO: No focal deficits. Alert and oriented x3. MAEW. CN's II-XI intact bilaterally PSYCH: Cooperative. Normal mood and affect. Course Vital Signs Vital signs: Vital Signs Temperature 36.4 C L 04/06/24 08:45 Pulse Rate 73 04/06/24 08:45 Respiratory Rate 16 04/06/24 08:45 Blood Pressure 115/60 04/06/24 08:45 Pulse Oximetry 99 04/06/24 08:45 Oxygen Delivery Room Air 04/06/24 08:45 Temperature 36.4 C L 04/06/24 08:45 Pulse Rate 73 04/06/24 08:45 Respiratory Rate 16 04/06/24 08:45 Blood Pressure 115/60 04/06/24 08:45 Pulse Oximetry 99 04/06/24 08:45 Oxygen Delivery Room Air 04/06/24 08:45 MDM - Extremity Injury (Lower) Imaging Data Radiologist's impression: Impressions Knee X-Ray 04/06/24 09:15 IMPRESSION: No acute osseous abnormality left knee. Mild osteoarthritic changes. Discharge Plan Discharge Clinical Impression: Injury of knee, left Patient Disposition: Home, Self-Care Condition: Stable Instructions: Antibiotic Form Prescriptions: No Action methocarbamol 500 mg tablet 500 mg PO TID PRN (Reason: pain) Qty: 60 0RF cephalexin 500 mg capsule 500 mg PO Q12H Qty: 20 0RF Follow-up/Referrals: PHYSICIAN NOT ON STAFF,NONSTAFF [Primary Care Provider] -
[2024-04-06 10:45] VITALS: BP 126/78; PULSE 74; RESP 16; TEMP 36.6; O2SAT 100
== END 2024-04-06 10:50 | disposition home or self-care (01) ==
PROVIDERS: Emergency Provider Nurse Practitioner Family
DX: S89.92XA Unspecified injury of left lower leg, initial encounter (principal); J45.909 Unspecified asthma, uncomplicated; Z86.73 Personal history of transient ischemic attack (TIA), and cerebral infarction without residual deficits; W01.0XXA Fall on same level from slipping, tripping and stumbling without subsequent striking against object, initial encounter
CPT/HCPCS: 73564; 99283

== ENCOUNTER 2024-04-16 08:04 | Outpatient (CLI) | payer OTHER, SELFPAY ==
--- NOTE | ~2024-04-16 | MR_ITS ---
MRI of the left knee Clinical history: Medial meniscus tear COMPARISON: 05/21/2022 Technique: Coronal proton density and proton density-weighted images, sagittal proton-density and T2 fat-sat images, and axial proton-density fat-saturated images were acquired. Findings: Anterior and posterior cruciate ligaments are intact. Medial collateral ligament and the la teral collateral ligament complex are intact. Suggestion of sequela of remote injury to the proximal MCL noted. Popliteus tendon is intact. No medial meniscal tear seen. The posterior horn and body of the lateral meniscus are diminutive, lik sofia representing sequela of prior partial meniscectomy and/or chronic meniscal tear based on comparis on to prior exam. Articular cartilage in the patellofemoral and medial, versus well-preserved. There is mild chondromal acia of the lateral femoral condyle. Bone marrow signals are essentially unremarkable. Extensor mechanism is intact. No joint effusion or Hayward's cyst. Impression: Diminutive posterior horn and body of the lateral meniscus likely is due to prior partial meniscectom y change. No definite acute recurrent meniscal tear evident. 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 Reviewed, dictated and finalized at location . Impression: Diminutive posterior horn and body of the lateral meniscus likely is due to carissa or partial meniscectomy change. No definite acute recurrent meniscal tear evide nt. 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
== END 2024-04-16 08:05 | disposition home or self-care (01) ==
PROVIDERS: Visit Provider Orthopaedic Surgery
DX: S83.242D Other tear of medial meniscus, current injury, left knee, subsequent encounter (principal); X58.XXXD Exposure to other specified factors, subsequent encounter
CPT/HCPCS: 73721

== ENCOUNTER 2025-09-26 13:04 | Emergency (ER) | payer BC, SELFPAY ==
--- OUTSIDE RECORDS SUMMARY | 2025-09-25 23:47 | XMS_ITS | Encounter Summary ---
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 file Highest education level: Not on file Occupational History Occupation: [employer] Comment: Refused to give employer name Tobacco Use Smoking status: Some Days Types: Cigarettes Smokeless tobacco: Never Tobacco comments: Social Vaping Use Vaping status: Never Used Substance and Sexual Activity Alcohol use: Yes Comment: occasionally Drug use: Never Sexual activity: Yes Other Topics Concern Service No Blood Transfusions No Caffeine Concern No Occupational Exposure No Hobby Hazards No Sleep Concern Yes Stress Concern Yes Weight Concern Not Asked Special Diet No Back Care No Exercise No Bike Helmet Yes Seat Belt Yes Self-Exams Yes Social History Narrative Not on file Social Drivers of Health Tobacco Use: High Risk (09/25/2025) Patient History Smoking Tobacco Use: Some Days Smokeless Tobacco Use: Never Passive Exposure: Not on file Alcohol Use: Not At Risk (07/07/2025) AUDIT-C Frequency of Alcohol Consumption: 2-4 times a month Average Number of Drinks: 1 or 2 Frequency of Binge Drinking: Never Financial Resource Needs: Not on file Food Insecurity Needs: Not on file Transportation Needs: Not on file Physical Activity: Not on file Stress: Not on file Social Integration: Not on file Personal Safety: Low Risk (09/25/2025) Personal Safety Feels Unsafe at Home or Work/School: no Feels Threatened by Someone: no Does Anyone Try to Keep You From Having Contact with Others or Doing Things Outside Your Home?: no Physical Signs of Abuse Present: no Depression: Not At Risk (07/07/2025) PHQ-2 PHQ-2 Score: 0 Housing Stability: Not on file Utilities: Not on file T CREASER * Jairon Erickson RN - 09/26/2025 12:31 AM CST The patient was updated regarding the current plan of care and he is attempting to provide a urine sample at this time. T CREASER * Jairon Erickson RN - 09/25/2025 11:53 PM CST Pt . Reports to ED room 1 via [facility] for reports of left sided flank pain which started tonight around 10:30 pm. The patient states that his flank pain is worse when he takes deep breaths. EMS states that they administered 15 mg of toradol through an 20 G IV in the patients left Antecubital which EMS initiated. The patient is currently afebrile and complaining of intense left sided flank pain. T CREASER T CREASER T CREASER * Inna Garcia RN - 09/25/2025 11:48 PM CST Bed: ED01-01 Expected date: 09/25/25 Expected time: 11:43 PM Means of arrival: Ambulance Comments: [facility] T CREASER documented in this encounter Miscellaneous Notes * PatientPass Patient Instructions - Estevan Funk MD - 09/26/2025 3:59 AM CST Images from the original note were not included. Patient Education Table of Contents Side Pain (Flank Plain) in Adults: What it Means Muscle Cramps and Spasms: What They Mean To view videos and all your education online visit, [email or web address] or scan this QR code with your smartphone. Access to this content will in one year. Side Pain (Flank Plain) in Adults: What it Means Flank pain is pain in your side. The flank is the area on your side between your upper belly (abdomen) and your spine. The pain may be sudden, or it may be long-term. It may be mild or very bad. Treatment will depend on what's causing your flank pain. Possible causes of flank pain Pain in this area can be caused by many things, such as: Muscle soreness or injury. Kidney infection, kidney stones, or kidney disease. Stress. A disease of the spine. Lung problems like: ? A lung infection (pneumonia). ? Fluid around the lungs. Shingles. This is a skin rash caused by the chickenpox virus. Problems in the belly like: ? Trouble pooping (constipation). ? Appendicitis. ? Gallbladder disease. ? Abnormal growth of cells or tissue (tumors). Follow these instructions at home: Drink more fluids as told. Rest as told. Take your medicines only as told. Keep a journal to keep track of: ? What causes your flank pain. ? What makes your flank pain feel better. Keep all follow-up visits. Your health care provider will need to check on your condition. Contact a health care provider if: Medicine doesn't help your pain. You have new symptoms. Your pain gets worse. Your symptoms last longer than 2?3 days. You're peeing more often than normal. You have flank pain and a fever. You feel like you may throw up or you throw up. You have blood in your pee. Get help right away if: You have trouble breathing. You're short of breath. Your belly hurts, or it's swollen or red. You feel like you'll faint, or you faint. These symptoms may be an emergency. Call 911 right away. Do not wait to see if the symptoms will go away. Do not drive yourself to the hospital. This information is not intended to replace advice given to you by your health care provider. Make sure you discuss any questions you have with your health care provider. Document Released: 2006-11-06 Document Updated: 2025-01-07 Document Reviewed: 2025-01-07 [employer] Patient Education ? 2024 [employer] Muscle Cramps and Spasms: What They Mean Muscle cramps and spasms occur when a muscle or muscles tighten and you have no control over this tightening (involuntary muscle contraction). They are a common problem that can happen in any muscle.The most common place is in the calf muscles of the leg. There are a few ways that muscle cramps and spasms differ: Muscle cramps are painful. They come and go and may last for a few seconds or up to 15 minutes. Muscle cramps are often more forceful and last longer than muscle spasms. Muscle spasms may or may not be painful. They may last just a few seconds or last much longer. Certain conditions, such as diabetes or Parkinson's disease, can make you more likely to have cramps or spasms. But in most cases, cramps and spasms are not caused by other conditions. Common causes include: Overexertion. This is when you do more physical work or exercise than your body is ready for. Overuse from doing the same movements too many times. Staying in one position for too long. Improper preparation, form, or technique when playing a sport or doing an activity. Not enough water or other fluids in your body (dehydration). Other causes may include: Injury. Side effects of some medicines. Too few salts and minerals in your body (electrolytes), such as potassium and calcium. This could happen if you are taking water pills (diuretics) or if you are . In many cases, the cause of muscle cramps or spasms is not known. Follow these instructions at home: Eating and drinking Drink enough fluid to keep your pee (urine) pale yellow. This can help prevent cramps or spasms. Eat a healthy diet that includes a lot of nutrients to help your muscles work. A healthy diet includes fruits and vegetables, lean protein, whole grains, and low-fat or nonfat dairy products. Managing pain and stiffness Try to massage, stretch, and relax the affected muscle. Do this for a few minutes at a time. If told, put ice on the muscles. This may help if you are sore or have pain after a cramp or spasm. ? Put ice in a plastic bag. ? Place a towel between your skin and the bag. ? Leave the ice on for 20 minutes, 2?3 times a day. If told, apply heat to tight or tense muscles as often as told by your health care provider. Use the heat source that your provider recommends, such as a moist heat pack or a heating pad. ? Place a towel between your skin and the heat source. ? Leave the heat on for 20?30 minutes. If your skin turns bright red, remove the ice or heat right away to prevent skin damage. The risk of damage is higher if you cannot feel pain, heat, or cold. Take hot showers or baths to help relax tight muscles. General instructions If you are having cramps often, avoid intense exercise for a few days. Take glcd-njr-[id number] and prescription medicines only as told by your provider. Watch for any changes in your symptoms. Contact a health care provider if: Your cramps or spasms get more severe or happen more often. Your cramps or spasms do not get better over time. This information is not intended to replace advice given to you by your health care provider. Make sure you discuss any questions you have with your health care provider. Document Released: 2003-03-07 Document Updated: 2025-07-27 Document Reviewed: 2023-05-06 [employer] Patient Education ? 2024 [employer] 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 [address] [facility] [place] [address] documented as of this encounter Procedures Procedure Name Priority Date/Time Associated Diagnosis Comments CT RENAL STONE STUDY (ABDOMEN AND PELVIS W/O CONTRAST) Stat with Interpretation 09/26/2025 1:33 AM SHIRT CRE[facility]ER URINALYSIS REFLEX IF INDICATED BY ABNORMAL RESULTS STAT 09/26/2025 12:38 AM SHIRT CREASER CBC WITH AUTO DIFFERENTIAL STAT 09/26/2025 12:07 AM [facility]IRT CREASER LIPASE STAT 09/26/2025 12:07 AM [facility]IRT CREASER CMP (COMPREHENSIVE METABOLIC PANEL) STAT 09/26/2025 12:07 AM SHIRT CREASER COMPLETE BLOOD COUNT (CBC) WITH DIFF STAT 09/26/2025 12:07 AM SHIRT CREASER documented in this encounter Results * CT RENAL STONE STUDY (ABDOMEN AND PELVIS W/O CONTRAST) (09/26/2025 1:33 AM SHIRT CREASER) Anatomical Region Laterality Modality Abdomen N/A Computed Tomogra phy 09/26/2025 1:33 AM SHIRT CREASER Impressions 09/26/2025 2:31 PM SHIRT CREASER IMPRESSION: 1. No renal or ureteral calculus. No acute abnormality identified. Preliminary report was provided by the overnight teleradiology service. Narrative 09/26/2025 2:31 PM SHIRT CREASER DICTATING PHYSICIAN: Domenica Ascencio M.D. - [facility] PROCEDURE: CT RENAL STONE STUDY (ABDOMEN AND PELVIS W/O CONTRAST) DATE OF EXAM: 09/26/2025 1:33 AM DEMOGRAPHICS: 40 years, Male INDICATION: Left flank pain. COMPARISON: None. TECHNIQUE: Stone study protocol. Unenhanced CT of the abdomen and pelvis obtained using renal calculus protocol. Low-dose protocol utilized. Suboptimal evaluation of the solid organs, vasculature and bowel due to lack of IV and oral contrast. Coronal and sagittal reformatted images were provided. DOSE OPTIMIZATION AND RADIATION EXPOSURE: Radiation dose reduction techniques were employed. CTDIvol: 14.1 mGy. DLP: 742 mGy-cm. FINDINGS: Inferior chest: No consolidation. Liver: Normal appearance of the liver parenchyma. Gallbladder and biliary tree: No calcified gallstones. No biliary duct dilation. Pancreas: Normal noncontrast appearance of the pancreatic parenchyma. Spleen: Unremarkable. Adrenals: Unremarkable. Kidneys/Ureters: Normal renal size. No hydronephrosis or nephrolithiasis. Right interpolar cortical cyst. Urinary bladder: Unremarkable. Reproductive organs: Unremarkable. Distal esophagus, stomach and small bowel: Stomach is unremarkable. Duodenum follows normal anatomic course. No bowel obstruction. Colon and appendix: Colon is unremarkable. Normal appendix. Peritoneum/mesentery: No free air, ascites, or organized fluid collection. Vasculature: Aorta is normal in caliber. IVC is unremarkable. Lymphatic system: No lymphadenopathy. Retroperitoneum: Unremarkable. Abdominal/pelvic wall: Small fat-containing umbilical hernia. Bones: No suspicious osseous lesions. Procedure Note Domenica Ascencio MD - 09/26/2025 DICTATING PHYSICIAN: Domenica Ascencio M.D. - [facility] PROCEDURE: CT RENAL STONE STUDY (ABDOMEN AND PELVIS W/O CONTRAST) DATE OF EXAM: 09/26/2025 1:33 AM DEMOGRAPHICS: 40 years, Male INDICATION: Left flank pain. COMPARISON: None. TECHNIQUE: Stone study protocol. Unenhanced CT of the abdomen and pelvisobtained using renal calculus protocol. Low-dose protocol utilized.Suboptimal evaluation of the solid organs, vasculature and bowel due tolack of IV and oral contrast. Coronal and sagittal reformatted images wereprovided. DOSE OPTIMIZATION AND RADIATION EXPOSURE: Radiation dose reductiontechniques were employed. CTDIvol: 14.1 mGy. DLP: 742 mGy-cm. FINDINGS: Inferior chest: No consolidation. Liver: Normal appearance of the liver parenchyma. Gallbladder and biliary tree: No calcified gallstones. No biliary ductdilation. Pancreas: Normal noncontrast appearance of the pancreatic parenchyma. Spleen: Unremarkable. Adrenals: Unremarkable. Kidneys/Ureters: Normal renal size. No hydronephrosis or nephrolithiasis.Right interpolar cortical cyst. Urinary bladder: Unremarkable. Reproductive organs: Unremarkable. Distal esophagus, stomach and small bowel: Stomach is unremarkable.Duodenum follows normal anatomic course. No bowel obstruction. Colon and appendix: Colon is unremarkable. Normal appendix. Peritoneum/mesentery: No free air, ascites, or organized fluidcollection. Vasculature: Aorta is normal in caliber. IVC is unremarkable. Lymphatic system: No lymphadenopathy. Retroperitoneum: Unremarkable. Abdominal/pelvic wall: Small fat-containing umbilical hernia. Bones: No suspicious osseous lesions. IMPRESSION: 1. No renal or ureteral calculus. No acute abnormality identified. Preliminary report was provided by the overnight teleradiology service. us Estevan Funk MD IMG CT ORDERABLES Final R esult * (ABNORMAL) URINALYSIS REFLEX IF INDICATED BY ABNORMAL RESULTS (09/26/2025 12:38 AM SHIRT CREASER) SPECIFIC GRAVITY 1.025 1.003 - 1.030 09/26/2025 1:16 AM [facility] URINE PH 6.0 5.0 - 9.0 09/26/2025 1:16 AM [facility] WBC ESTERASE Negative Negative 09/26/2025 1:16 AM [facility] NITRITE Negative Negative 09/26/2025 1:16 AM [facility] PROTEIN, RANDOM URINE 30 mg/dL(A) Negative 09/26/2025 1:16 AM [facility] URINE GLUCOSE, QUAL Negative Negative 09/26/2025 1:16 AM [facility] URINE KETONES Negative Negative 09/26/2025 1:16 AM [facility] UROBILINOGEN Normal Normal mg/dL 09/26/2025 1:16 AM [facility] URINE BLOOD 25 /uL(A) Negative chitra/ul 09/26/2025 1:16 AM [facility] URINALYSIS COLOR Yellow 09/26/20 1:16 AM [facility] URINALYSIS CLARITY Clear 09/26/2025 1:16 AM [facility] WBC (Urine) 0-5 Negative, 0-5 /hpf 09/26/2025 1:16 AM [facility] URINE RBC'S 6-10(A) Negative, 0-2 /hpf 09/26/2025 1:16 AM [facility] EPITHELIAL CELLS Occasional /lpf 09/26/20 1:16 AM [facility] BACTERIA, URINE Few(A) Negative /hpf 09/26/2025 1:16 AM [facility] Urine URINE SPECIMEN / Unknown Non-Phlebotomy Collection / Unknown 09/26/2025 12:38 AM [facility] CRE[facility]ER 09/26/2025 1:01 AM [facility] CRE[facility]ER Estevan Funk MD URINE ORDERABLES Final Re sult [facility] [address] [place] [address] * Lipase (09/26/2025 12:07 AM SHIRT CREASER) LIPASE 21 8 - 78 U/L 09/26/2025 1:06 AM [facility] Blood Venipuncture / Unknown 09/26/2025 12:07 AM SHIRT CREASER 09/26/2025 12:33 AM SHIRT CRE[facility]ER Estevan Funk MD CHEMISTRY ORDERABLES Kelsie l Result Performing Organization Address City/[facility]/ZIP Co de Phone Number [facility] [address] [place] [address] * (ABNORMAL) CBC with Auto Differential (09/26/2025 12:07 AM SHIRT CREASER) WBC 5.93 4.00 - 12.00 10(3)/mcL 09/26/2025 12:35 AM [facility] RBC 4.85 4.40 - 5.80 10(6)/mcL 09/26/2025 12:35 AM [facility] HEMOGLOBIN (HGB) 15.1 13.0 - 16.5 g/dL 09/26/2025 12:35 AM [facility] HEMATOCRIT (HCT) 45.1 38.0 - 50.0 % 09/26/2025 12:35 AM [facility] MCV 93.0 82.0 - 96.0 fL 09/26/2025 12:35 AM [facility] MCH 31.1 26.0 - 32.0 pg 09/26/2025 12:35 AM [facility] MCHC 33.5 31.0 - 36.0 g/dL 09/26/2025 12:35 AM [facility] PLATELET COUNT 246 140 - 440 10(3)/mcL 09/26/2025 12:35 AM [facility] RDW 11.2(L) 11.8 - 15.5 % 09/26/2025 12:35 AM [facility] MPV 9.7 8.0 - 12.6 fL 09/26/2025 12:35 AM [facility] NEUTROPHILS 61.9 40.0 - 68.0 % 09/26/2025 12:35 AM [facility] LYMPHOCYTES 24.1 19.0 - 49.0 % 09/26/2025 12:35 AM [facility] MONOCYTES 7.9 3.0 - 13.0 % 09/26/2025 12:35 AM [facility] EOSINOPHILS 4.9 0.0 - 8.0 % 09/26/2025 12:35 AM [facility] BASOPHILS 0.7 0.0 - 1.0 % 09/26/2025 12:35 AM [facility] IMMATURE GRANULOCYTE 0.5(H) 0.0 - 0.4 % 09/26/2025 12:35 AM [facility] Comment:Immature Granulocyte s includes Metamyelocytes, Myelocytes, and Promyelocytes. ABSOLUTE NEUTROPHILS 3.67 1.40 - 5.30 10(3)/mcL 09/26/2025 12:35 AM [facility] ABSOLUTE LYMPHOCYTES 1.43 0.90 - 3.30 10(3)/mcL 09/26/2025 12:35 AM [facility] CRE[facility] ABSOLUTE MONOCYTES 0.47 0.10 - 0.90 10(3)/mcL 09/26/2025 12:35 AM [facility] ABSOLUTE EOSINOPHIL 0.29 0.00 - 0.50 10(3)/mcL 09/26/2025 12:35 AM [facility] ABSOLUTE BASOPHILS 0.04 0.00 - 0.10 10(3)/mcL 09/26/2025 12:35 AM [facility] ABSOLUTE IMMATURE GRANULOCYTE 0.03 0.00 - 0.03 10 (3) mcL. 09/26/2025 12:35 AM [facility] NRBC PER 100 WBC 0 09/26/20 12:35 AM [facility] Blood Venipuncture / Unknown 09/26/2025 12:07 AM [facility]ER 09/26/2025 12:33 AM SH[facility] CREASER Estevan Funk MD HEMATOLOGY ORDERABLES Fin al Result [facility] [address] [place] [address] * (ABNORMAL) CMP (Comprehensive Metabolic Panel) (09/26/2025 12:07 AM [facility]) SODIUM 141 136 - 145 mmol/L 09/26/2025 12:54 AM [facility] POTASSIUM 3.9 3.5 - 5.1 mmol/L 09/26/2025 12:54 AM [facility] CHLORIDE 109(H) 98 - 107 mmol/L 09/26/2025 12:54 AM [facility] CO2, VENOUS 22 22 - 30 mmol/L 09/26/2025 12:54 AM [facility] ANION GAP 13.9 <18.0 mmol/L 09/26/2025 12:54 AM [facility] GLUCOSE 108(H) 70 - 99 mg/dL 09/26/2025 12:54 AM [facility] BUN 9 9 - 21 mg/dL 09/26/2025 12:54 AM [facility] CREATININE, BLOOD 1.04 0.70 - 1.30 mg/dL 09/26/2025 12:54 AM [facility] BUN/CREATININE RATIO 9(L) 12 - 20 ratio 09/26/2025 12:54 AM [facility] TOTAL PROTEIN 7.0 6.0 - 8.0 g/dL 09/26/2025 12:54 AM [facility] ALBUMIN 4.4 3.5 - 5.0 g/dL 09/26/2025 12:54 AM [facility] A/G RATIO 1.7 1.0 - 2.2 09/26/2025 12:54 AM [facility] CALCIUM 9.1 8.7 - 10.5 mg/dL 09/26/2025 12:54 AM [facility] T BILI 0.7 0.2 - 1.2 mg/dL 09/26/2025 12:54 AM [facility] SGOT (AST) 39 <43 U/L 09/26/2025 12:54 AM [facility] SGPT (ALT) 65(H) <56 U/L 09/26/2025 12:54 AM [facility] ALKALINE PHOSPHATASE 48 40 - 150 U/L 09/26/2025 12:54 AM [facility] GFR, ESTIMATED >60 >=60 09/26/2025 12:54 AM [facility] Comment: Creatinine Clearance is the preferred criteria for selecting drug dose adjustments in renally impaired patients. The GFR is provided as additional pertinent clinical information. GFR is reported in mL/min/1.73 sq m. Calculation based on the 2020 Chronic Kidney Disease Epidemiology Collaboration (CKD-EPI) equation refit without adjustment for race. GFR, EST. >60 >=60 025 12:54 AM [facility] Comment: Creatinine Clearance is the preferred criteria for selecting drug dose adjustments in renally impaired patients. The GFR is provided as additional pertinent clinical information. GFR is reported in mL/min/1.73 sq m. Calculation based on the 2009 Chronic Kidney Disease Epidemiology Collaboration (CKD-EPI). GFR, EST. NONAFRICAN >60 >=60 09/26/2025 12:54 AM [facility] Comment: Creatinine Clearance is the preferred criteria for selecting drug dose adjustments in renally impaired patients. The GFR is provided as additional pertinent clinical information. GFR is reported in mL/min/1.73 sq m. Calculation based on the 2009 Chronic Kidney Disease Epidemiology Collaboration (CKD-EPI). Blood Venipuncture / Unknown 09/26/2025 12:07 AM [facility]ER 09/26/2025 12:33 AM [facility] CRE[facility]ER us Estevan Funk MD CHEMISTRY ORDERABLES Kelsie waldron Result [facility] [address] [place] [address] documented in this encounter Visit Diagnoses Diagnosis Left flank pain- Primary Abdominal pain, unspecified site documented in this encounter Administered Medications Inactive Administered Medications - up to 3 most recent administrations Medication Order MAR Action Action Date Dose Rate Site 0.9 % sodium chloride solution at 500 mL/hr, Intravenous, ONCE, 1 dose, On Fri09/26/25 at 0130 New Bag 09/26/2025 12:54 AM [facility] 1,000 mL 500 mL/hr ketorolac (TORADOL) injection 30 mg 30 mg, Intravenous, ONCE, 1 dose, On Fri09/26/25 at 0130 Given 09/26/2025 12:54 AM [facility]ER 30 mg naproxen (NAPROSYN) tablet 500 mg 500 mg, Oral, ONCE, 1 dose, On Fri09/26/25 at 0430 Given 09/26/2025 4:06 AM [facility]ER 500 mg documented in this encounter Active and Recently Administered Medications Times are shown in [facility]ER. Scheduled Medication Order 09/24/2025 09/25/2025 09/26/2025 0.9 % sodium chloride solution (COMPLETED) at 500 mL/hr, Intravenous, ONCE, 1 dose, On Fri09/26/25 at 0130 0054 (New Bag - Prov ider: Inna Garcia RN)0307 (Stopped - Provider: Jordy Ortiz RN) ketorolac (TORADOL) injection 30 mg (COMPLETED) 30 mg, Intravenous, ONCE, 1 dose, On Fri09/26/25 at 0130 0054 (Given - Provid er: Inna Garcia RN) naproxen (NAPROSYN) tablet 500 mg (COMPLETED) 500 mg, Oral, ONCE, 1 dose, On Fri09/26/25 at 0430 0406 (Given - Provid er: Jairon Erickson RN) ondansetron (ZOFRAN) injection 4 mg(Linked Group 1) 4 mg, Intravenous, ONCE, 1 dose, On Fri09/26/25 at 0100, For Active Vomiting. A) Contact Provider for order if patient is in first trimester of . B) Option to hold if patient does not have nausea or vomiting. 0035 (See Alternativ e - Provider: Jairon Erickson RN) ondansetron (ZOFRAN-ODT) disintegrating tablet 4 mg(Linked Group 1) 4 mg, Oral, ONCE, 1 dose, On Fri09/26/25 at 0100, For Nausea. A) Contact Provider for order if patient is in first trimester of . B) Option to hold if patient does not have nausea or vomiting. 0035 (Not Given - Pr ovider: Jairon Erickson RN - Reason: Patient/family refused - Comment: pt not feeling nauseous.) Linked Groups Order Group 1: ondansetron (ZOFRAN-ODT) disintegrating tablet 4 mgJump to med 4 mg, Oral, ONCE, 1 dose, On Fri09/26/25 at 0100, For Nausea. A) Contact Provider for order if patient is in first trimester of . B) Option to hold if patient does not have nausea or vomiting. Or ondansetron (ZOFRAN) injection 4 mgJump to med 4 mg, Intravenous, ONCE, 1 dose, On Fri09/26/25 at 0100, For Active Vomiting. A) Contact Provider for order if patient is in first trimester of . B) Option to hold if patient does not have nausea or vomiting. 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
--- OUTSIDE RECORDS SUMMARY | 2025-09-25 23:47 | XMS_ITS | Encounter Summary ---
Author Organization [facility] Address [address] [place] [address] Phone Care Team Providers Care Hog Room Supervisor Name Role Phone Mer Clemente APRN, ERNESTO Primary Care Provide r Reason for Visit * Reason Comments Flank Pain Encounter Details Date Type Department Care Team (Late st Contact Info) Description 09/25/2025 11:47 PM YOGHURT MAKER - 09/26/2025 4:16 AM YOGHURT MAKER Emergency [facility] Emergency [address] [place] [address] Estevan Funk MD [address] [place] [address] Left flank pain Discharge Disposition: Discharged to [...] Comments Blood Pressure 122/64 09/26/2025 4:12 AM YOGHURT MAKER Pulse 67 09/26/2025 4:12 AM YOGHURT MAKER Temperature 36.8 C (98.2 F) 09/25/2025 11:51 PM YOGHURT MAKER Respiratory Rate 14 09/26/2025 4:12 AM YOGHURT MAKER Oxygen Saturation 97% 09/26/2025 4:12 AM YOGHURT MAKER Inhaled Oxygen Concentration - - Weight 102.9 kg (226 lb 13.7 oz) 2024 11:51 PM YOGHURT MAKER Height 185.4 cm (6' 1) 09/25/2025 11:5 1 PM YOGHURT MAKER Body Mass Index 29.93 09/25/2025 11:51 PM YOGHURT MAKER documented in this encounter Functional Status * Elsah Coma Score Question Answer Date of Assessment Author Best Eye Response 4-->(E4) spontaneous 09/26/2025 4:12 AM Jairon Frances RN Best Verbal Response 5-->(V5) oriented 09/26/2025 4:12 AM Jairon Frances RN Best Motor Response 6-->(M6) obeys commands 09/26/2025 4:12 AM Jairon Frances RN Gilma Coma Scale Score 15 09/26/2025 4:12 AM Jairon Frances RN * Pain Description [...] 0 09/25/2025 11:56 PM Jairon Todd RN Morse Fall Risk Score 0 09/25/2025 11:56 PM Jairon Frances RN * Oxygen Therapy Question Answer Date of Assessment Author SpO2 97 09/26/2025 4:12 AM Jairon Park RN O2 Device None (Room air) 09/26/2025 4:12 AM Jairon Serrano RN * Safety Factors Answer Date of Assessment Author bed in low position;call lig ht in reach 09/25/2025 11:56 PM Jairon Frances RN * Vitals Question Answer Date of Assessment Author BP 122/64 09/26/2025 4:12 AM Jairon Park RN Temp 98.2 09/25/2025 11:51 PM Jairon Cedeno RN Pulse 67 09/26/2025 4:12 AM Jairon Park RN Resp 14 09/26/2025 4:12 AM Jairon Park RN Heart Rate (Monitor) 67 09/26/2025 4:12 AM Jairon Rm RN * Pain Description Answer Date of Assessment Author constant;other (see comments) 09/26/2025 4:06 AM Jairon Frances RN documented as of this encounter Mental Status * Elsah Coma Score Question Answer Entry Date Author Best Eye Response 4-->(E4) spontaneous 4:12 AM Jairon Frances RN Best Verbal Response 5-->(V5) oriented 4:12 AM Jairon Frances RN Best Motor Response 6-->(M6) obeys commands 08/30 4:12 AM Jairon Frances RN Elsah Coma Scale Score 15 09/26/2025 4:12 AM Jairon Frances RN * Pain Description Answer Entry Date Author iliana;other (see comments) 09/26/2025 4:06 AM Jairon Frances RN * Oxygen Therapy Question Answer Entry Date Author SpO2 97 09/26/2025 4:12 AM Jairon Park RN O2 Device None (Room air) 09/26/2025 4:12 AM YOGHURT MAKER Jairon Corley RN * Safety Factors Answer Entry Date Author bed in low position;call lig ht in reach 09/25/2025 11:56 PM YOGHURT MAKER Jairon Erickson RN * Vitals Question Answer Entry Date Author BP 122/64 09/26/2025 4:12 AM Jairon Park RN Temp 98.2 09/25/2025 11:51 PM Jairon Cedeno RN Pulse 67 09/26/2025 4:12 AM Jairon Park RN documented in this encounter Discharge Instructions * Discharge Instructions* Estevan Funk MD - 09/26/2025 4:00 AM YOGHURT MAKER Take medication as directed. Follow-up with your regular doctor for recheck in the next week or so. URT MAKER documented in this encounter Medications at Time [...] per ambulatory mode with self as responsible republican. D/C'ed with Dangelo cath intact. URT MAKER URT MAKER Jairon Arce RN - 09/26/2025 3:58 AM CST ERP at bedside to discuss a discharge plan with the patient. K * Jairon Erickson RN - 09/26/2025 3:49 [...] direct reach in case he needs anything. URT MAKER K * Jairon Erickson RN - 09/26/2025 2:00 AM CST The patient was updated regarding the current plan of care and the patient verbalizes understandingthat he is awaiting the results of his CT scan. The patient denies any further needs or questions at this time. Jairon Arce RN - 09/26/2025 1:41 AM CST Pt. In CT at this time. URT MAKER * Estevan Funk MD - 09/26/2025 12:46 [...] level: Not on file Occupational History Occupation: [employer] Comment: Refused to give employer name Tobacco [...] Not on file Utilities: Not on file URT MAKER * Jairon Erickson RN - 09/26/2025 12:31 AM CST The patient was updated regarding the current plan of care and he is attempting to provide a urine sample at this time. URT MAKER * Jairon Erickson RN - 09/25/2025 11:53 PM CST Pt . Reports to ED room 1 via [facility] for reports of left sided flank pain which started tonight around 10:30 pm. The patient states that his flank pain is worse when he takes deep breaths. EMS states that they administered 15 mg of toradol through an 20 G IV in the patients left Antecubital which EMS initiated. The patient is currently afebrile and complaining of intense left sided flank pain. URT MAKER URT MAKER URT MAKER * Inna Garcia RN - 09/25/2025 11:48 PM CST Bed: ED01-01 Expected date: 09/25/25 Expected time: 11:43 PM Means of arrival: Ambulance Comments: [facility] URT MAKER documented in this encounter Miscellaneous Notes * PatientPass Patient Instructions - Estevan Funk MD - 09/26/2025 3:59 AM CST Images from the original note were not included. Patient Education Table of Contents Side Pain (Flank Plain) in Adults: What it Means Muscle Cramps and Spasms: What They Mean To view videos and all your education online visit, [email or web address] or scan this QR code with your [...] 2006-11-06 Document Updated: 2025-01-07 Document Reviewed: 2025-01-07 [employer] Patient Education ? 2024 [employer] Muscle Cramps and Spasms: What They [...] intense exercise for a few days. Take [id number] and prescription medicines only as told by [...] 2003-03-07 Document Updated: 2025-07-27 Document Reviewed: 2023-05-06 [employer] Patient Education ? 2024 [employer] URT MAKER documented in this encounter Plan of Treatment Upcoming Encounters Date Type Department Care Team (Late st Contact Info) Description 01/11/2026 9:40 AM CDT Office Visit [facility] [address] [place] [address] Mer Clemente, ORTHOPEDIC CODER, HR RECRUITER [address] [place] [address] Pending Results Name Type Priority Associated Diagnoses Date/Time CT RENAL STONE STUDY (ABDOMEN AND PELVIS W/O CONTRAST) Imaging Stat with Interpretation 025 1:33 AM YOGHURT MAKER Scheduled Orders Name Type Priority Associated Diagnoses Orde r Schedule CT RENAL STONE STUDY (ABDOMEN AND PELVIS W/O CONTRAST) Imaging Routine Once PRN (for Ra diant use) for 1 Occurrences starting 09/26/2025 until 09/26/2025 documented as of this encounter Procedures Procedure Name Priority Date/Time Associated Diagnosis Comments URINALYSIS REFLEX IF INDICATED BY ABNORMAL RESULTS STAT 09/26/2025 12:38 AM YOGHURT MAKER CBC WITH AUTO DIFFERENTIAL STAT 09/26/2025 12:07 AM YOGHURT MAKER LIPASE STAT 09/26/2025 12:07 AM YOGHURT MAKER CMP (COMPREHENSIVE METABOLIC PANEL) STAT 09/26/2025 12:07 AM YOGHURT MAKER COMPLETE BLOOD COUNT (CBC) WITH DIFF STAT 09/26/2025 12:07 AM YOGHURT MAKER documented in this encounter Results * (ABNORMAL) URINALYSIS REFLEX IF INDICATED BY ABNORMAL RESULTS (09/26/2025 12:38 AM YOGHURT MAKER) SPECIFIC GRAVITY 1.025 1.003 - 1.030 09/26/2025 1:16 AM YOGHURT MAKER [facility] URINE PH 6.0 5.0 - 9.0 09/26/2025 1:16 AM YOGHURT MAKER [facility] WBC ESTERASE Negative Negative 09/26/2025 1:16 AM YOGHURT MAKER [facility] NITRITE Negative Negative 09/26/2025 1:16 AM YOGHURT MAKER [facility] PROTEIN, RANDOM URINE 30 mg/dL(A) Negative 09/26/2025 1:16 AM YOGHURT MAKER [facility] URINE GLUCOSE, QUAL Negative Negative 09/26/2025 1:16 AM YOGHURT MAKER [facility] URINE KETONES Negative Negative 09/26/2025 1:16 AM YOGHURT MAKER [facility] UROBILINOGEN Normal Normal mg/dL 09/26/2025 1:16 AM YOGHURT MAKER [facility] URINE BLOOD 25 /uL(A) Negative chitra/ul 09/26/2025 1:16 AM YOGHURT MAKER [facility] URINALYSIS COLOR Yellow 09/26/20 1:16 AM YOGHURT MAKER [facility] URINALYSIS CLARITY Clear 09/26/2025 1:16 AM YOGHURT MAKER [facility] WBC (Urine) 0-5 Negative, 0-5 /hpf 09/26/2025 1:16 AM YOGHURT MAKER [facility] URINE RBC'S 6-10(A) Negative, 0-2 /hpf 09/26/2025 1:16 AM YOGHURT MAKER [facility] EPITHELIAL CELLS Occasional /lpf 09/26/20 1:16 AM YOGHURT MAKER [facility] BACTERIA, URINE Few(A) Negative /hpf 09/26/2025 1:16 AM YOGHURT MAKER [facility] Urine URINE SPECIMEN / Unknown Non-Phlebotomy Collection / Unknown 09/26/2025 12:38 AM YOGHURT MAKER 09/26/2025 1:01 AM YOGHURT MAKER Estevan Funk MD URINE ORDERABLES Final Re sult Performing Organization Address City/[facility]/ZIP Co de Phone Number [facility] [address] [place] [address] * Lipase (09/26/2025 12:07 AM YOGHURT MAKER) LIPASE 21 8 - 78 U/L 09/26/2025 1:06 AM YOGHURT MAKER [facility] Blood Venipuncture / Unknown 09/26/2025 12:07 AM YOGHURT MAKER 09/26/2025 12:33 AM YOGHURT MAKER Estevan Funk MD CHEMISTRY ORDERABLES Kelsie l Result [facility] [address] [place] [address] * (ABNORMAL) CBC with Auto Differential (09/26/2025 12:07 AM YOGHURT MAKER) WBC 5.93 4.00 - 12.00 10(3)/mcL 09/26/2025 12:35 AM [facility] RBC 4.85 4.40 - 5.80 10(6)/[facility] 09/26/2025 12:35 AM [facility] HEMOGLOBIN (HGB) 15.1 13.0 - 16.5 g/dL 09/26/2025 12:35 AM [facility] HEMATOCRIT (HCT) 45.1 38.0 - 50.0 % 09/26/2025 12:35 AM [facility] MCV 93.0 82.0 - 96.0 fL 09/26/2025 12:35 AM [facility] MCH 31.1 26.0 - 32.0 pg 09/26/2025 12:35 AM [facility] MCHC 33.5 31.0 - 36.0 g/dL 09/26/2025 12:35 AM [facility] PLATELET COUNT 246 140 - 440 10(3)/[facility] 09/26/2025 12:35 AM [facility] RDW 11.2(L) 11.8 - 15.5 % 09/26/2025 12:35 AM [facility] MPV 9.7 8.0 - 12.6 fL 09/26/2025 12:35 AM [facility] NEUTROPHILS 61.9 40.0 - 68.0 % 09/26/2025 12:35 AM [facility] LYMPHOCYTES 24.1 19.0 - 49.0 % 09/26/2025 12:35 AM [facility] MONOCYTES 7.9 3.0 - 13.0 % 09/26/2025 12:35 AM [facility] EOSINOPHILS 4.9 0.0 - 8.0 % 09/26/2025 12:35 AM [facility] BASOPHILS 0.7 0.0 - 1.0 % 09/26/2025 12:35 AM [facility] IMMATURE GRANULOCYTE 0.5(H) 0.0 - 0.4 % 09/26/2025 12:35 AM [facility] Comment:Immature Granulocyte s includes Metamyelocytes, Myelocytes, and Promyelocytes. ABSOLUTE NEUTROPHILS 3.67 1.40 - 5.30 10(3)/[facility] 09/26/2025 12:35 AM [facility] ABSOLUTE LYMPHOCYTES 1.43 0.90 - 3.30 10(3)/[facility] 09/26/2025 12:35 AM [facility] ABSOLUTE MONOCYTES 0.47 0.10 - 0.90 10(3)/[facility] 09/26/2025 12:35 AM YOGHURT MAKER [facility] ABSOLUTE EOSINOPHIL 0.29 0.00 - 0.50 10(3)/[facility] 09/26/2025 12:35 AM [facility] ABSOLUTE BASOPHILS 0.04 0.00 - 0.10 10(3)/[facility] 09/26/2025 12:35 AM [facility] ABSOLUTE IMMATURE GRANULOCYTE 0.03 0.00 - 0.03 10 (3) [facility]. 09/26/2025 12:35 AM [facility] NRBC PER 100 WBC 0 09/26/20 25 12:35 AM [facility] Blood Venipuncture / Unknown 09/26/2025 12:07 AM YOGHURT MAKER 09/26/2025 12:33 AM [facility] us Estevan Funk MD HEMATOLOGY ORDERABLES Fin al Result [facility] [address] [place] [address] * (ABNORMAL) CMP (Comprehensive Metabolic Panel) (09/26/2025 12:07 AM YOGHURT MAKER) SODIUM 141 136 - 145 mmol/L 09/26/2025 12:54 AM [facility] POTASSIUM 3.9 3.5 - 5.1 mmol/L 09/26/2025 12:54 AM [facility] CHLORIDE 109(H) 98 - 107 mmol/L 09/26/2025 12:54 AM [facility] CO2, VENOUS 22 22 - 30 mmol/L 09/26/2025 12:54 AM [facility] ANION GAP 13.9 <18.0 mmol/L 09/26/2025 12:54 AM [facility] GLUCOSE 108(H) 70 - 99 mg/dL 09/26/2025 12:54 AM [facility] BUN 9 9 - 21 mg/dL 09/26/2025 12:54 AM [facility] CREATININE, BLOOD 1.04 0.70 - 1.30 mg/dL 09/26/2025 12:54 AM [facility] BUN/CREATININE RATIO 9(L) 12 - 20 ratio 09/26/2025 12:54 AM [facility] TOTAL PROTEIN 7.0 6.0 - 8.0 g/dL 09/26/2025 12:54 AM [facility] ALBUMIN 4.4 3.5 - 5.0 g/dL 09/26/2025 12:54 AM [facility] A/G RATIO 1.7 1.0 - 2.2 09/26/2025 12:54 AM [facility] CALCIUM 9.1 8.7 - 10.5 mg/dL 09/26/2025 12:54 AM [facility] T BILI 0.7 0.2 - 1.2 mg/dL 09/26/2025 12:54 AM [facility] SGOT (AST) 39 <43 U/L 09/26/2025 12:54 AM [facility] SGPT (ALT) 65(H) <56 U/L 09/26/2025 12:54 AM [facility] ALKALINE PHOSPHATASE 48 40 - 150 U/L 09/26/2025 12:54 AM [facility] GFR, ESTIMATED >60 >=60 09/26/2025 12:54 AM [facility] Comment: Creatinine Clearance is the preferred criteria for selecting drug dose adjustments in renally impaired patients. The GFR is provided as additional pertinent clinical information. GFR is reported in mL/min/1.73 sq m. Calculation based on the 2020 Chronic Kidney Disease Epidemiology Collaboration (CKD-EPI) equation refit without adjustment for race. GFR, EST. >60 >=60 025 12:54 AM YOGHURT MAKER [facility] Comment: Creatinine Clearance is the preferred criteria for selecting drug dose adjustments in renally impaired patients. The GFR is provided as additional pertinent clinical information. GFR is reported in mL/min/1.73 sq m. Calculation based on the 2009 Chronic Kidney Disease Epidemiology Collaboration (CKD-EPI). GFR, EST. NONAFRICAN >60 >=60 09/26/2025 12:54 AM YOGHURT MAKER [facility] Comment: Creatinine Clearance is the preferred criteria for selecting drug dose adjustments in renally impaired patients. The GFR is provided as additional pertinent clinical information. GFR is reported in mL/min/1.73 sq m. Calculation based on the 2009 Chronic Kidney Disease Epidemiology Collaboration (CKD-EPI). Blood Venipuncture / Unknown 09/26/2025 12:07 AM YOGHURT MAKER 09/26/2025 12:33 AM YOGHURT MAKER us Estevan Funk MD CHEMISTRY ORDERABLES Kelsie waldron Result [facility] [address] [place] [address] documented in this encounter Visit Diagnoses Diagnosis Left flank pain- Primary Abdominal pain, unspecified site documented in this encounter Administered Medications Inactive Administered Medications - up to 3 most recent administrations Medication Order MAR Action Action Date Dose Rate Site 0.9 % sodium chloride solution at 500 mL/hr, Intravenous, ONCE, 1 dose, On Fri09/26/25 at 0130 New Bag 09/26/2025 12:54 AM YOGHURT MAKER 1,000 mL 500 mL/hr ketorolac (TORADOL) injection 30 mg 30 mg, Intravenous, ONCE, 1 dose, On Fri09/26/25 at 0130 Given 09/26/2025 12:54 AM YOGHURT MAKER 30 mg naproxen (NAPROSYN) tablet 500 mg 500 mg, Oral, ONCE, 1 dose, On Fri09/26/25 at 0430 Given 09/26/2025 4:06 AM YOGHURT MAKER 500 mg documented in this encounter Active and Recently Administered Medications Times are shown in YOGHURT MAKER. Scheduled Medication Order 09/24/2025 09/25/2025 09/26/2025 0.9 [...] Time PHQ-9 Depression Total Score: 0 07/07/20 8:48 AM CDT documented as of this encounter Care Teams Hog Room Supervisor Relationship Specialty Start Date End Date Mer Clemente, ORTHOPEDIC CODER, HR RECRUITER [address] [place] [address] PCP - General Advanced Practice Nurse 07/07/25 documented as of this encounter
--- NOTE | ~2025-09-26 | XR_ITS ---
EXAMINATION: XR chest 2V 09/26/2025 15:18 INDICATION: Left-sided flank pain and shortness of breath PROCEDURE: 2 view chest COMPARISON: 06/23/2025 FINDINGS: The lungs are clear. The cardiomediastinal silhouette is within normal limits. There are no pleural effusions. There is no pneumothorax suspected. IMPRESSION: 1: NO ACUTE CARDIOPULMONARY DISEASE. Reviewed, dictated and finalized at location O. 

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
--- OUTSIDE RECORDS SUMMARY | 2025-09-26 13:20 | XMS_ITS | Encounter Summary ---
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 Not on file Not on file documented as of this encounter Plan of Treatment Upcoming Encounters Date Type Department Care Team (Late st Contact Info) Description 01/11/2026 9:40 AM CDT Office Visit [facility] - Family Medicine [facility] [address] [place] [address] Mer Clemente APRN, TUBE WASHER [address] [facility] [place] [address] documented as of this encounter Visit Diagnoses Not on filedocumented in this encounter Additional Health Concerns Assessment Noted Time PHQ-9 Depression Total Score: 0 07/07/20 8:48 AM CDT documented as of this encounter Care Teams Diesel Engine I Pipe Fitter Relationship Specialty Start Date End Date Mer Clemente APRN, ERNESTO [address] [place] [address] PCP - General Advanced Practice Nurse 07/07/25 documented as of this encounter
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
--- OUTSIDE RECORDS SUMMARY | 2025-09-26 13:20 | XMS_ITS | Encounter Summary ---
Author Organization [facility] Address [address] [facility] [address] [place] [address] Phone Care Team Providers Care Scrap Bunch Maker Name Role Phone Ivet Betts MICROBIOLOGY MANAGER Primary Care Provider [phone] No, Physician Primary Care Provider [phone] Unknown, Notinfile Primary Care Provider Unavail able Unknown, Notinfile Primary Care Provider Unavail able Encounter Details Date Type Department Care Team (Late st Contact Info) Description 02/15/2020 Documentation [facility] Medicine Ophthalmology [address] [facility] [place] [address] Bimal Kwon MD PhD [address] [facility] [address] [place], [place] [id number] Social History Tobacco Use Types Packs/Day Years Used Date Smoking Tobacco: Light Smoker Smokeless Tobacco: Never Sex and Gender Information Value Date Recorded Sex Assigned at Not on file 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
--- OUTSIDE RECORDS SUMMARY | 2025-09-26 13:20 | XMS_ITS | Clinical Summary ---
Author Organization [facility] Address [address] [place] [address] Phone Care Team Providers Care Program Planner Name Role Phone Pradip Tillman MD Primary Care Provider Allergies No known active allergies Medications oxyCODONE-acetam inophen (PERCOCET) 5-325 mg tabletIndication s:Contusion of left knee, initial encounter Take 1 Tablet by mouth 1 time daily as needed for Pain, Severe. Max Daily Amount: 1 Tablet 6 Tablet 11/09/2021 Active Immunizations Immunization Administration Dates Next Due Hepatitis A Vaccine 08/18/2014,02/01/2014 Skin Test TB 01/24/2021 Social History Tobacco Use Types Packs/Day Years Used Date Smoking Tobacco: Some Days Smokeless Tobacco: Never Alcohol Use Standard Drinks/Week Comments Yes 0 (1 standard drink = 0.6 oz pur e alcohol) Sex and Gender Information Value Date Recorded Sex Assigned at Not on file Legal Sex Male 12:47 PM CDT Gender Identity Not on file Sexual Orientation Not on file Last Filed Vital Signs Vital Sign Reading Time Taken Comments Blood Pressure 136/83 11/09/2021 2:43 PM DECORATING CONSULTANT Pulse 96 11/09/2021 2:43 PM DECORATING CONSULTANT Temperature 36.7 C (98 F) 11/09/2021 2:43 PM DECORATING CONSULTANT Respiratory Rate 16 11/09/2021 2:43 PM DECORATING CONSULTANT Oxygen Saturation 97% 11/09/2021 2:43 PM DECORATING CONSULTANT Inhaled Oxygen Concentration - - Weight 105.2 kg (232 lb) 11/09/2021 2:43 PM DECORATING CONSULTANT Height 185.4 cm (6' 1) 11/09/2021 2:43 PM DECORATING CONSULTANT Body Mass Index 30.61 11/09/2021 2:43 PM DECORATING CONSULTANT Plan of Treatment Health Maintenance Due Date Last Done Comments DTAP/TDAP/TD VACCINES (1 - Tdap) 02/24/2003 HEPATITIS B VACCINES (1 of 3 - 19+ 3-dose series) 01/28 INFLUENZA VACCINE (#1) 2025 HPV VACCINES (No Doses Required) Completed Insurance [facility] MEDICAID RX CYR PLANS (INTERNAL) [facility] * Guarantor: [facility] [place] Account Type Relation to Patient Date of Phone Billing Address Corporate Other [id number] [address] Advance Directives For more information, please contact: [phone] Documents on File Type Date Recorded Patient Bull Driver Expl anation Advance Directive Living Will 09/18/2018 Care Teams Program Planner Relationship Specialty Start Date End Date Pradip Tillman MD [address] [place] [address] PCP - General Family Practice 11/09/21
[2025-09-26 13:23] VITALS: BP 124/81; PULSE 77; RESP 16; TEMP 36.9
--- NOTE | 2025-09-26 15:20 | ED.GENADULT ---
HPI - General Adult General Chief complaint: Back Pain/Injury Stated complaint: L Flank pain-diff taking deep breath Time Seen by Provider: 09/26/25 14:56 History of Present Illness HPI narrative: 40-year-old male presents to the emergency department for evaluation for persistent left flank pain. Patient reports pain started when sitting up in bed and patient was taken to [facility] by EMS yesterday. Patient had negative imaging at that time and sent home with naproxen. Patient presents to the ED a complaining of persistent left flank pain. Pain is worsened when taking a deep breath. Related Data Allergies Allergy/AdvReac Type Severity Reaction Status Date / Time No Known Allergies Allergy Verified 09/26/25 13:07 Review of Systems Review of Systems: All systems reviewed & are unremarkable except as noted in HPI and below PMFSH Past Medical History Medical History Anxiety Arthritis Asthma Depression with anxiety Environmental allergies Insomnia Lateral meniscus tear Left knee pain PTSD (post-traumatic stress disorder) TIA (transient ischemic attack) Surgical History Surgical History No pertinent past surgical history S/P left knee arthroscopy Social History Social History Smoking status: Current some day smoker Tobacco type: cigars Second hand tobacco smoke exposure: Yes Alcohol intake: current Substance use: never Substance use type: does not use Current Housing: Decline to Answer Concerned About Future Housing: Decline to Answer Difficulty Paying Gas/Electric Bills: Decline to Answer Difficulty Paying for Meds: Decline to Answer Currently Unemployed: Decline to Answer Education: Decline to Answer Difficulty w/ Childcare or Family Care: Decline to Answer Living arrangements: alone Occupation/Education: occupation 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 HEAD: normocephalic, atraumatic. EYES: PERRLA/EOMI, conjunctivae clear. NOSE: Normal no drainage EARS:TMS clear with good light reflex. THROAT: Pharynx clear, no exudate. NECK: Supple. No adenopathy, no masses. RESPIRATORY: Normal lung sounds bilaterally CARDIOVASCULAR: Regular rate and rhythm without murmurs rubs or gallops. ABDOMINAL: Soft, nontender, nondistended, normal bowel sounds MUSCULOSKELETAL: Left-sided lower rib tenderness to palpation, no crepitus NEURO: Alert. Cranial nerves II through XII intact. Good gait. Good coordination SKIN: Warm, dry. Normal Color Course Vital Signs Vital signs: Vital Signs Temperature 98.4 F 09/26/25 13:23 Pulse Rate 77 09/26/25 13:23 Respiratory Rate 16 09/26/25 13:23 Blood Pressure 124/81 09/26/25 13:23 Temperature 98.4 F 09/26/25 13:23 Pulse Rate 67 09/26/25 16:30 Respiratory Rate 18 09/26/25 16:30 Blood Pressure 135/92 H 09/26/25 16:30 Pulse Oximetry 100 09/26/25 16:30 MDM MDM Narrative Medical decision making narrative: 40-year-old male presents to the emergency department for evaluation left flank pain. Patient has reproducible tenderness over the left lateral ribs. No ecchymosis, no crepitus. Lungs are clear to auscultation. Chest x-ray shows no acute cardiopulmonary abnormality. Differential Diagnosis Differential Diagnosis: Rib fracture, rib contusion, muscle strain, pneumothorax Imaging Data Attestation: I personally reviewed and interpreted this imaging study as follows: My impression: Chest x-ray: No acute cardiopulmonary abnormality Radiologist's impression: ITS Impressions Chest X-Ray 09/26/25 15:38 IMPRESSION: 1: NO ACUTE CARDIOPULMONARY DISEASE. Discharge Plan Discharge Clinical Impression: Muscle strain, Rib pain Patient Disposition: Home Condition: Stable Instructions: Antibiotic Form, Flank Pain (ED) Additional Instructions: Take your naproxen and your muscle relaxant as prescribed by your previous physician. [place] as needed for additional pain control. Have close follow-up with your primary care physician. Patient Language: German Prescriptions: New hydrocodone-acetaminophen 5-325 mg tablet 1 tablet PO Q12H PRN (Reason: pain) Qty: 14 0RF No Action diclofenac sodium 75 mg tablet,delayed release (DR/EC) 75 mg PO BID Qty: 60 0RF Follow-up/Referrals: PHYSICIAN NOT ON STAFF,NONSTAFF [Primary Care Provider] Stand Alone Forms: Work/School Release IP
--- OUTSIDE RECORDS SUMMARY | 2025-09-26 15:43 | XMS_ITS | Encounter Summary ---
Author Organization [facility] Address [address] [facility] [address] [place] [address] Phone Care Team Providers Care Clerk To Justice Name Role Phone Ivet Betts TREE MARKER Primary Care Provider [phone] No, Physician Primary Care Provider [phone] Unknown, Notinfile Primary Care Provider Unavail able Unknown, Notinfile Primary Care Provider Unavail able Encounter Details Date Type Department Care Team (Late st Contact Info) Description 02/15/2020 Documentation [facility] Medicine Ophthalmology [address] [facility] [place] [address] Bimal Kwon MD PhD [address] [facility] [address] [place], [place] [id number] Social History Tobacco Use Types Packs/Day Years Used Date Smoking Tobacco: Light Smoker Smokeless Tobacco: Never Sex and Gender Information Value Date Recorded Sex Assigned at Not on file Legal Sex Male 4:01 PM BILLING TYPIST Gender Identity Not on file Sexual Orientation Not on file documented as of this encounter Plan of Treatment Not on file documented as of this encounter Visit Diagnoses Not on filedocumented in this encounter Care Teams Clerk To Justice Relationship Specialty Start Date End Date Ivet Betts NP [address] [address] PCP - General Pediatrics 10/28/19 05/29/20 No, Physician PCP - General 05/30/20 03/12/21 Unknown, Notinfile PCP - General 03/16/21 Unknown, Notinfile PCP - General 03/13/21 03/15/21 documented as of this encounter
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
--- OUTSIDE RECORDS SUMMARY | 2025-09-26 15:43 | XMS_ITS | Clinical Summary ---
Author Organization [facility] Address [address] [place] [address] Care Team Providers Care Bindery Machine Setter Name Role Phone Unavailable Primary Care Provider Unavailabl e Source Comments [facility],non-owned Affiliates and Associated Physician Practices is amultiple site organization consisting of ambulatory clinics and hospital sitesin [place], [place], [place] and [place]. This disclosure is being madepursuant to the Care Everywhere program and may not contain all information available regarding this patient. Last updated 18.[employer] [facility] Allergies No known active allergies Medications * [...] 3 Cervicalgia 02/17/2023 Cerebrovascular accident (CVA), unspecified [facility] 06/01/2022 Pain in finger of left [...] on file Legal Sex Male 5:38 PM SOLUTION MANAGER Gender Identity Not on file Sexual Orientation [...] Ratio 4.0 <5.0 06/02/2022 5:17 AM CDT [facility] Blood BLOOD SPECIMEN / Unknown Venipuncture / Unknown 06/02/2022 4:24 AM CDT 06/02/2022 4:37 AM CDT Richard Valverde MD LAB - CHEMISTRY ORDERABLES Kelsie waldron Result [facility] [address] [place] [address] from Last 3 Months or Most Recently Relevant to Health Maintenance Insurance [employer] THIRD LIBERTARIAN LIABILITY TP THIRD LIBERTARIAN LIABILITY Democrat Liability [facility] THIRD LIBERTARIAN LIABILITY Democrat Liability Advance Directives * Full Code (Latest Code Status on File) Date Activated Date Inactivated Comments 02/17/2023 6:32 AM 02/17/2023 7:36 PM * Full Code Date Activated Date Inactivated Comments 06/01/2022 12:44 PM 06/03/2022 1:29 PM
--- OUTSIDE RECORDS SUMMARY | 2025-09-26 15:43 | XMS_ITS | Encounter Summary ---
Author Organization [facility] Care Team Providers Care Butadiene Convertor Operator Name Role Phone Mer Clemente SPANISH INSTRUCTOR, CHALK EXTRUDING MACHINE OPERATOR Primary Care Provide r Encounter Details Date [...] Description 01/11/2026 9:40 AM CDT Office Visit [facility] [address] [place] [address] Mer Clemente APRN, CHALK EXTRUDING MACHINE OPERATOR 2 [facility] [place] [address] documented as of this encounter Visit Diagnoses Not on filedocumented in this encounter Additional Health Concerns Assessment Noted Time PHQ-9 Depression Total Score: 0 07/07/20 8:48 AM CDT documented as of this encounter Care Teams Butadiene Convertor Operator Relationship Specialty Start Date End Date Mer Clemente APRN, ERNESTO [address] [place] [address] PCP - General Advanced Practice Nurse 07/07/25 documented as of this encounter
--- OUTSIDE RECORDS SUMMARY | 2025-09-26 15:43 | XMS_ITS | Clinical Summary ---
Author Organization [facility] Address [address] [place] [address] Phone Care Team Providers Care Digital Photographer Name Role Phone Pradip Tillman MD Primary [...] Comments Blood Pressure 136/83 11/09/2021 2:43 PM TECHNICAL RECRUITER Pulse 96 11/09/2021 2:43 PM TECHNICAL RECRUITER Temperature 36.7 C (98 F) 11/09/2021 2:43 PM TECHNICAL RECRUITER Respiratory Rate 16 11/09/2021 2:43 PM TECHNICAL RECRUITER Oxygen Saturation 97% 11/09/2021 2:43 PM TECHNICAL RECRUITER Inhaled Oxygen Concentration - - Weight 105.2 kg (232 lb) 11/09/2021 2:43 PM TECHNICAL RECRUITER Height 185.4 cm (6' 1) 11/09/2021 2:43 PM TECHNICAL RECRUITER Body Mass Index 30.61 11/09/2021 2:43 PM TECHNICAL RECRUITER Plan of Treatment Health Maintenance Due Date Last Done Comments DTAP/TDAP/TD VACCINES (1 - Tdap) 02/24/2003 HEPATITIS B VACCINES (1 of 3 - 19+ 3-dose series) 01/28 INFLUENZA VACCINE (#1) 2025 HPV VACCINES (No Doses Required) Completed Insurance [facility] MEDICAID RX CYR PLANS (INTERNAL) [facility] * Guarantor: [facility] (OM) Account Type Relation to Patient Date of Phone Billing Address Corporate Other [id number] [address] Advance Directives For more information, please contact: [phone] Documents on File Type Date Recorded Patient Flat Sheet Maker Expl anation Advance Directive Living Will 09/18/2018 Care Teams Digital Photographer Relationship Specialty Start Date End Date Pradip Tillman MD [address] [place] [address] PCP - General Family Practice 11/09/21
--- OUTSIDE RECORDS SUMMARY | 2025-09-26 15:43 | XMS_ITS | Clinical Summary ---
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 Vision loss [...] on file Legal Sex Male 4:01 PM ORACLE DEVELOPER Gender Identity Not on file Sexual Orientation [...] future) Hepatitis B Screening Completed 05/27/1998 Insurance [employer] 360 OOS [employer] COMPENSATION GENERIC Care Teams White Lead Grinder Relationship Specialty Start Date End Date Unknown, Notinfile PCP - General 03/16/21
[2025-09-26 16:30] VITALS: BP 135/92; PULSE 67; RESP 18; O2SAT 100
== END 2025-09-26 16:35 | disposition home or self-care (01) ==
PROVIDERS: Emergency Provider Emergency Medicine
DX: T14.8XXA Other injury of unspecified body region, initial encounter (principal); R07.9 Chest pain, unspecified; X58.XXXA Exposure to other specified factors, initial encounter; F17.290 Nicotine dependence, other tobacco product, uncomplicated
CPT/HCPCS: 71046; 99283